=== PATIENT | female | born 1955 | race Caucasian/White ===

== ENCOUNTER 2021-02-26 14:09 | Outpatient (CLI) | payer OTHER, SELFPAY ==
--- NOTE | ~2021-02-26 | DEXA_ITS ---
Bone Density Report Name: Margarita Waller Age: 65 Sex: Female Ethnicity: White Date of : 1955 Indication: postmenopausal; parental hip fracture; height loss; hysterectomy; Referring Provider: Albert Henry Study: Bone densitometry was performed. Exam Date: February 26, 2021 Accession number: [id number] Bone Density: Region BMD T-score Z-score Classification AP Spine (L1, L2) 1.160 1.6 3.2 Normal Femoral Neck (Left) 0.893 0.4 1.8 Normal Total Hip (Left) 1.095 1.3 2.4 Normal Total Hip Bilateral Avg 1.076 1.1 2.3 Normal Femoral Neck (Right) 0.904 0.5 1.9 Normal Total Hip (Right) 1.056 0.9 2.1 Normal World Health Organization criteria for BMD impression classify patients as: Normal (T-score at or above -1.0), Osteopenia (T-score between -1.0 and -2.5), or Osteoporosis (T-score at or below -2.5). 10-year Fracture Risk: FRAX not reported because: All T-scores for Spine Total, Hip Total, Femoral Neck at or above -1.0 Previous Exams: Region Exam Age BMD T-score BMD Change BMD Change Date g/cm2 vs Baseline vs Previous AP Spine(L1, L2) 02/26/2021 65 1.160 1.6 -0.080(-6.4%)# 0.017(1.5%) 03/19/2017 61 1.143 1.5 -0.097(-7.8%)# -0.097(-7.8%)# 08/11/2006 51 1.240 2.4 Total Hip(Left) 02/26/2021 65 1.095 1.3 -0.153(-12.2%) -0.009(-0.8%) 03/19/2017 61 1.104 1.3 -0.144(-11.6%) -0.144(-11.6%) 08/11/2006 51 1.248 2.5 Total Hip(Right) 02/26/2021 65 1.056 0.9 -0.166(-13.6%) -0.022(-2.1%) 03/19/2017 61 1.078 1.1 -0.144(-11.8%) -0.144(-11.8%) 08/11/2006 51 1.222 2.3 *Denotes significance at 95% confidence level, LSC for AP Spine = 0.022 g/cm2, LSC for Total Hip = 0.027 g/cm2 Clinical Information Provided by Patient: Parent has had a hip fracture Has the following medical conditions: Hysterectomy Patient maximum height was 66 Menopause Age: 44 Drinks caffeinated beverages Onset of menses at age 16 Number of children 1 Impression: The patient has normal bone mass. The patient has risk factors, including: parental hip fracture. No significant bone loss was observed. Discussion: BONE DENSITY IS ABOVE THE MINIMUM DESIRABLE LEVEL AT ALL SKELETAL SITES TESTED. This patient?s bone mineral density is above the minimum desirable level (T-score -1.0 or better) at all sites measured. The patient should follow a healthful lifestyle (good nutrition with adequate calcium and vitamin D, and appropriate weight-be
--- NOTE | ~2021-02-26 | MM_ITS ---
EXAMINATION: MM screening finn BI w hamlet HISTORY: Screening TECHNIQUE: Craniocaudal and mediolateral oblique 3-D tomosynthesis images were obtained and synthetic 2-D images were generated. CAD analysis was submitted and interpreted. COMPARISON: 03/19/2017 BREAST PARENCHYMAL COMPOSITION: There are scattered areas of fibroglandular density. FINDINGS: There is no evidence of suspicious mass, calcification, or architectural distortion to sugg est malignancy in either breast. There has been no suspicious interval change. IMPRESSION: 1. No mammographic evidence of malignancy. 2. Recommend routine screening mammography in one year. BI-RADS Category 1: Negative Reviewed, dictated and finalized at location A.
== END 2021-02-26 14:10 | disposition home or self-care (01) ==
LOC: ANHIMG 14:18
PROVIDERS: PCP Family Medicine; Visit Provider Physician Assistant
DX: Z12.31 Encounter for screening mammogram for malignant neoplasm of breast (principal); Z78.0 Asymptomatic menopausal state
CPT/HCPCS: 77063; 77067; 77080

== ENCOUNTER 2022-05-27 12:04 | Day surgery (SDC) | payer OTHER, SELFPAY ==
[2022-03-20 09:29] VITALS: BMI 25.9
[2022-05-13 13:55] VITALS: BMI 25.9
--- NOTE | 2022-05-27 11:48 | WPDANESEPPF ---
Anes - Initial Pre Proc Eval Procedure: Operation Date: 05/27/22 14:00 Proposed Procedures p Screening Colonoscopy - Javon Cooper MD Date/Time: 05/27/22 11:48 Surgeon: Javon Cooper MD Pre Op Diagnosis: Neoplasm Screening Patient Data Age: 66 Gender: F Height: 1.68 m Weight: 73 kg Allergies Allergy/AdvReac Type Severity Reaction Status Date / Time No Known Allergies Allergy Verified 05/27/22 12:46 Home Medications Medication Instructions Recorded Confirmed Type diclofenac sodium 1 % topical gel 4 gm topical QID #100 grams 07/29/19 05/27/22 Rx venlafaxine 37.5 mg 37.5 mg PO DAILY #90 caps 12/13/21 05/27/22 Rx capsule,extended release 24 hr zolpidem 10 mg tablet 10 mg PO .qhs #90 tabs 03/18/22 05/27/22 Rx peg 3350-electrolytes 236 240 ml PO Q10M #4,000 mL 03/20/22 05/27/22 Rx gram-22.74 gram-6.74 gram-5.86 gram solution (Golytely) Patient hx anesthesia problems: none Family hx anesthesia problems: none Results Review: All pre-operative results and documents have been reviewed as part of the pre-operative evaluation. [facility] Past Medical History Medical History (Updated 05/27/22 @ 11:49 by Salomon Bosch MD) Depression Obstructive sleep apnea (adult) (pediatric) Surgical History Surgical History History of cataract surgery History of hysterectomy Family History Family History Mother Hypertension Osteoporosis Father Family history of lung cancer, Onset Age: 59 Social History Social History Smoking packs per day: 0.5 Smoking cigarettes per day: 10.0 Years smoked: 15 Smoking pack-years: 7.50 Smoking status: Former smoker Tobacco type: cigarettes Smoking end date: 08/31/06 Alcohol intake: current Substance use: never Substance use type: does not use Living arrangements: with family Spiritual care concerns: No Anes - Eval Final PreProcedure Day of Procedure 05/27/22 11:48 Patient weight: overweight Heart: regular rate and rhythm Lungs: clear to auscultation Airway: Mallampati scale class II Neurological: alert and oriented Last oral intake: >/= 8 hours ASA classification: II Emergent: no Anesthetic plan: proceed Anesthesia type and monitoring: general GIVS and standard monitoring Results Review: All pre-operative results and documents have been reviewed as part of the pre-operative evaluation. Informed Consent: The patient's anesthetic plan and its attendant risks and benefits were discussed with the patient/family/POA. Questions were solicited and answers provided to the satisfaction of the patient/family/POA.
[2022-05-27 12:40] VITALS: BP 117/99; PULSE 71; RESP 16; TEMP 36.8; O2SAT 100
[2022-05-27] MEDS: LACTATED RINGERS 1,000 ML 150 ML IV CONT (13:04)
--- NOTE | 2022-05-27 13:17 | PM.HPGS ---
History of Present Illness History of Present Illness Consent: Risks, benefits, and alternatives have been discussed and questions answered. Patient agrees to proceed with procedure. Chief complaint: Neoplasm Screening Narrative: Margarita Waller is a 66 year old female Presents for screening colonoscopy. Patient's current weight appetite and bowel movements are normal. She denies abdominal pain. She has had no bleeding. Family history is noncontributory. Patient does have a past medical history of diverticulitis. Many years ago. Review of Systems Review of Systems: Review of systems noncontributory. COUNTS INCLUDE 234 BEDS AT THE [facility] Past Medical History Medical History (Updated 05/27/22 @ 13:18 by Javon Cooper MD) Depression Obstructive sleep apnea (adult) (pediatric) Surgical History Surgical History History of cataract surgery History of hysterectomy Family History Family History Mother Hypertension Osteoporosis Father Family history of lung cancer, Onset Age: 59 Social History Social History Smoking packs per day: 0.5 Smoking cigarettes per day: 10.0 Years smoked: 15 Smoking pack-years: 7.50 Smoking status: Former smoker Tobacco type: cigarettes Smoking end date: 08/31/06 Alcohol intake: current Substance use: never Substance use type: does not use Living arrangements: with family Spiritual care concerns: No Meds Home Medications and Allergies Home Medications Medication Instructions Recorded Confirmed Type diclofenac sodium 1 % topical gel 4 gm topical QID #100 grams 07/29/19 05/27/22 Rx venlafaxine 37.5 mg 37.5 mg PO DAILY #90 caps 12/13/21 05/27/22 Rx capsule,extended release 24 hr zolpidem 10 mg tablet 10 mg PO .qhs #90 tabs 03/18/22 05/27/22 Rx peg 3350-electrolytes 236 240 ml PO Q10M #4,000 mL 03/20/22 05/27/22 Rx gram-22.74 gram-6.74 gram-5.86 gram solution (Golytely) Allergies Allergy/AdvReac Type Severity Reaction Status Date / Time No Known Allergies Allergy Verified 05/27/22 12:46 Vital Signs Vital Signs - 24 hr 05/27/22 12:40 Temperature 98.3 F Pulse Rate 71 Respiratory Rate 16 Blood Pressure 117/99 H Pulse Oximetry 100 Oxygen Delivery Room Air Exam Narrative: Physical exam reveals patient to be alert. Vital signs stable. HEENT exam is unremarkable. Patient is anicteric. Lungs are clear to auscultation and percussion. Heart is without murmur or extra sounds. Abdomen bowel sounds are present soft nontender with no organomegaly. Digital external rectal exam is normal. Assessment and Plan Assessment and plan (1) Encounter for screening colonoscopy: Code(s): Z12.11 - Encounter for screening for malignant neoplasm of colon Status: Acute Assessment and Plan: Patient presents today for screening colonoscopy. Appears to be at average risk for colon polyps. High-fiber diet advised because prior history of diverticular disease.
[2022-05-27 14:46] VITALS: BP 114/70; PULSE 78; RESP 16; O2SAT 100
[2022-05-27 14:56] VITALS: BP 104/74; PULSE 75; RESP 16; O2SAT 100
--- NOTE | 2022-05-27 14:58 | SUR.PHASEII ---
PT AWAKE AND ALERT. EATING AND DRINKING. DENIES PAIN.
--- NOTE | 2022-05-27 15:01 | WPDANESPN ---
Anes - Prog Note Post-Op Date/Time: 05/27/22 15:01 Cardiovascular status: normal Respiratory status: normal Airway patency: baseline Mental status: baseline Post-Op hydration status: normal Vital Signs: Last Vital Signs Temp 36.8 C 05/27/22 12:40 Pulse 75 05/27/22 14:56 Resp 16 05/27/22 14:56 BP 104/74 05/27/22 14:56 Pulse Ox 100 05/27/22 14:56 O2 Del Method Room Air 05/27/22 14:56 Pain Score (VAS): 0 I/O: Intake & Output 05/26/22 05/27/22 05/27/22 23:59 07:59 15:59 Intake Total 500 Balance 500 Patient Feedback: Patient satisfied with anesthetic care.
[2022-05-27 15:06] VITALS: BP 119/72; PULSE 74; RESP 16
== END 2022-05-27 15:20 | disposition home or self-care (01) ==
PROVIDERS: PCP Physician Assistant; Visit Provider Internal Medicine Gastroenterology
PROC: 0DJD8ZZ Inspection of Lower Intestinal Tract, Via Natural or Artificial Opening Endoscopic (ICD-10-PCS; CPT 45378; principal; 2022-05-27 14:00)
DX: Z12.11 Encounter for screening for malignant neoplasm of colon (principal)
CPT/HCPCS: 45378

== ENCOUNTER 2022-12-09 10:52 | Emergency (ER) | payer MEDICARE, SELFPAY ==
[2022-12-09 10:57] VITALS: BP 132/78; PULSE 68; RESP 18; TEMP 36.4; O2SAT 100
--- NOTE | 2022-12-09 11:34 | ED.GENADULT ---
HPI - General Adult General Chief complaint: Wound/Laceration Stated complaint: Left hand laceration Time Seen by Provider: 12/09/22 11:10 History of Present Illness HPI narrative: 67-year-old female reports for evaluation of a laceration to the dorsal aspect of her left hand after accidentally cutting her hand with scissors just prior to arrival. Bleeding controlled. Patient is unsure when her last tetanus shot was. Denies fever, bodies, chills, purulent drainage. Related Data Allergies Allergy/AdvReac Type Severity Reaction Status Date / Time No Known Allergies Allergy Verified 09/03/22 14:20 Review of Systems Review of Systems: CONSTITUTIONAL: Denies fever, chills EYES: Denies visual changes, redness, or discharge. ENT: Denies rhinorrhea, congestion, sore throat, or otalgia. CARDIOVASCULAR: Denies chest pain, palpitations, or edema. RESPIRATORY: Denies cough or dyspnea. GASTROINTESTINAL: Denies abdominal pain, nausea, vomiting, or diarrhea. GENITOURINARY: Denies dysuria or hematuria. SKIN: Denies rash or itching. MUSCULOSKELETAL: Denies back pain, joint pain, or myalgia. NEUROLOGIC: Denies headache, numbness, dizziness, or weakness. PSYCHIATRIC: Denies anxiety or depression. [facility] Past Medical History Medical History Depression Obstructive sleep apnea (adult) (pediatric) Surgical History Surgical History H/O colonoscopy History of cataract surgery History of hysterectomy Family History Family History Mother Hypertension Osteoporosis Father Family history of lung cancer, Onset Age: 59 Social History Social History Smoking packs per day: 0.5 Smoking cigarettes per day: 10.0 Years smoked: 15 Smoking pack-years: 7.50 Smoking status: Former smoker Tobacco type: cigarettes Smoking end date: 08/31/06 Alcohol intake: current Substance use: never Substance use type: does not use Lack of Transportation: No Lack of Food: Never True Current Housing: I Have Housing Concerned About Future Housing: No Difficulty Paying Gas/Electric Bills: No Difficulty Paying for Meds: No Currently Unemployed: No Education: High School Diploma/GED Difficulty w/ Childcare or Family Care: No Living arrangements: with family Spiritual care concerns: No Exam Narrative: GENERAL: Well-appearing, well-nourished, and in no acute distress. Patient resting comfortably in exam bed. She is pleasant and conversational. HEAD: Normocephalic, atraumatic. EYES: PERRLA and EOMI. ENT: Nares clear, no rhinorrhea or epistaxis. Mucous membranes moist. Oropharynx without tonsillar hypertrophy exudate or other lesions. NECK: Supple. No adenopathy or masses. CHEST: Clear to auscultation. No respiratory distress. No wheezes rales or rhonchi HEART: Regular rate and rhythm. No murmur heard. Normal peripheral pulses. EXTREMITIES: Normal range of motion. No edema. SKIN: 3.5 cm U shaped laceration to L dorsal hand overlying 1st metacarpal. Bleeding controlled. No purulent drainage. Full ROM of hand. Cap refill <2. Sensation intact. NEURO: No focal deficits. Alert and oriented x3. PSYCH: Normal mood and affect. Course Vital Signs Vital signs: Vital Signs Temperature 97.6 F 12/09/22 10:57 Pulse Rate 68 12/09/22 10:57 Respiratory Rate 18 12/09/22 10:57 Blood Pressure 132/78 12/09/22 10:57 Pulse Oximetry 100 12/09/22 10:57 Oxygen Delivery Room Air 12/09/22 10:57 Temperature 97.6 F 12/09/22 10:57 Pulse Rate 68 12/09/22 10:57 Respiratory Rate 18 12/09/22 10:57 Blood Pressure 132/78 12/09/22 10:57 Pulse Oximetry 100 12/09/22 10:57 Oxygen Delivery Room Air 12/09/22 10:57 Procedures Laceration Laceration 1:
[2022-12-09] MEDS: TETANUS,DIPHTHERIA,AC PERTUSSIS ADULT (0.5 ML) BOOSTRIX IM (11:53)
[2022-12-09] MEDS: LIDOCAINE HCL 1% LOCAL INJ 10 ML VIAL 5 ML INFILTRATE (11:54)
== END 2022-12-09 13:46 | disposition home or self-care (01) ==
PROVIDERS: Emergency Provider Physician Assistant; PCP Family Medicine
DX: S61.412A Laceration without foreign body of left hand, initial encounter (principal); Z23 Encounter for immunization; G47.33 Obstructive sleep apnea (adult) (pediatric); Z98.49 Cataract extraction status, unspecified eye; Z90.710 Acquired absence of both cervix and uterus; Z87.891 Personal history of nicotine dependence; W27.2XXA Contact with scissors, initial encounter
CPT/HCPCS: 12002; 90471; 90715; 99282

== ENCOUNTER 2023-07-08 13:49 | Outpatient (CLI) | payer MEDICARE, SELFPAY ==
--- NOTE | ~2023-07-08 | MM_ITS ---
EXAMINATION: MM screening finn BI w hamlet HISTORY: Screening TECHNIQUE: Craniocaudal and mediolateral oblique 3-D tomosynthesis images were obtained and synthetic 2-D images were generated. CAD analysis was submitted and interpreted. COMPARISON: Comparison to multiple prior studies sequentially, with oldest reviewed study dated 03/19. BREAST PARENCHYMAL COMPOSITION: The breasts are heterogeneously dense, which may obscure small masses . FINDINGS: There is no evidence of suspicious mass, calcification, or architectural distortion to sugg est malignancy in either breast. There has been no suspicious interval change. IMPRESSION: 1. No mammographic evidence of malignancy. 2. Recommend routine screening mammography in one year. BI-RADS Category 1: Negative Reviewed, dictated and finalized at location A. TING CARD EDITOR
== END 2023-07-08 13:50 | disposition home or self-care (01) ==
LOC: ANHIMG 13:54
PROVIDERS: PCP Emergency Medicine; Visit Provider Emergency Medicine
DX: Z12.31 Encounter for screening mammogram for malignant neoplasm of breast (principal); Z13.820 Encounter for screening for osteoporosis
CPT/HCPCS: 77063; 77067

== ENCOUNTER 2023-07-15 09:43 | Outpatient (CLI) | payer MEDICARE, SELFPAY ==
--- NOTE | ~2023-07-15 | NM_ITS ---
EXAMINATION: NM maicol stress w perfusion DATE: 07/15/2023 11:42 INDICATION: Precordial chest pain. TECHNIQUE: Rest images were obtained following intravenous administration of 11.3 mCi Tc99m tetrofosm in (Myoview). The patient was infused intravenously with Lexiscan (regadenoson). Then, 33.6 mCi Tc99m tetrofosmin (Myoview) was administered intravenously, and stress images were obtained. Data was paula nstructed into short axis and horizontal and vertical long axis SPECT images. Gated SPECT images were also obtained. COMPARISON: None. FINDINGS: There is no definite reversible or fixed perfusion abnormality to suggest ischemia or infar ction. There is no segmental wall motion abnormality. Left ventricular ejection fraction measures > 70%. IMPRESSION: 1. No definite ischemia or infarct. 2. Normal left ventricular ejection fraction measuring > 70%. Reviewed, dictated and finalized at location A. T BOAT CAPTAIN
--- NOTE | 2023-07-15 09:51 | EST_ITS ---
Patient Info Name: Margarita Waller Age: 67 years : 1955 Gender: Female Ht: 66 in Wt: 164 lbs BSA: 1.88 m2 HR: 65 bpm BP: 113 / 75 mmHg Exam Date: 07/15/2023 10:47 AM Exam Location: [facility] Patient Status: Outpatient Admit Date: 07/15/2023 Staff Ordering Physician: David George MD Attending Provider: David George MD Exercise Technologist: Shanita Casanova CT Exercise Physician: Keron Jones DO Exam Type: CA stress maicol w NM Study Info A regadenoson stress test was performed. Summary 1. 1. Negative lexiscan stress test for ischemic ST changes by ECG criteria. 2. 2. Stable hemodynamics throughout the test. 3. 3. Nuclear scan to follow and will be reported separately. Please correlate with it. 4. 4. Patient informed of the above results. Protocol: Lexiscan Stress ECG Details Stage: REST Duration (min): 1 min : 6 sec HR (bpm): 64 SBP (mmHg): 113 DBP (mmHg): 75 Stage: REST Duration (min): 9 min : 25 sec HR (bpm): 66 SBP (mmHg): 113 DBP (mmHg): 75 Stage: STAGE 1 Duration (min): 1 min : 0 sec HR (bpm): 85 SBP (mmHg): 120 DBP (mmHg): 73 Stage: RECOVERY Duration (min): 1 min : 0 sec HR (bpm): 92 SBP (mmHg): 120 DBP (mmHg): 73 Stage: RECOVERY Duration (min): 2 min : 0 sec HR (bpm): 90 SBP (mmHg): 120 DBP (mmHg): 73 Stage: RECOVERY Duration (min): 3 min : 0 sec HR (bpm): 87 SBP (mmHg): 130 DBP (mmHg): 76 Rest HR: 66 bpm Peak HR: 100 bpm Rest Sys BP: 113 mmHg Peak Sys BP: 130 mmHg Max Pred HR: 155 bpm % Max Pred HR: 65 % Target HR: 132 bpm Max RPP: 13,000 bpm*mmHg Termination Reason: Completed protocol Cardiac Symptoms: Shortness of breath Total Time: 1 min : 0 sec Rest Platt BP: 75 mmHg Peak Platt BP: 76 mmHg Total Dose: 0.4 mg Resting ECG Sinus rhythm. Stress ECG No ST changes. Arrhythmias None. Report Signatures
--- NOTE | 2023-07-17 16:33 | WPDHOLTEREM ---
Holter/Event Monitor Holter/Event Monitor Date of procedure: 07/15/23 Holter/Event Procedure: 48 Hr Holter Monitor Indications: Precordial pain Conclusion: 1. 48 hour holter monitor on 07/15/23. 2. Underlying rhythm is sinus rhythm. HR range 61-133 bpm; average HR 83 bpm. 3. There are 14 premature supraventricular complexes and 1 supraventricular couplet. No supraventricular tachycardia. 4. There is 1 premature ventricular complex. No ventricular tachycardia. 5. No sinoatrial or atrioventricular blocks. No significant pauses greater than 2 seconds. 6. Patient reports symptoms of chest flutter which demonstrate sinus rhythm, HR range 69-82 bpm.
== END 2023-07-15 09:44 | disposition home or self-care (01) ==
PROVIDERS: PCP Emergency Medicine; Visit Provider Emergency Medicine
DX: R07.2 Precordial pain (principal); R00.2 Palpitations
CPT/HCPCS: 78452; 93017; 93225; 93226; A9502; J2785

== ENCOUNTER 2023-07-27 13:43 | Emergency (ER) | payer MEDICARE, SELFPAY ==
--- NOTE | ~2023-07-27 | XR_ITS ---
EXAMINATION: XR chest 2V DATE: 07/27/2023 14:30 INDICATION: Chest pain. TECHNIQUE: Frontal and lateral views of the chest were obtained. COMPARISON: Chest 2 views 05/20/2010 FINDINGS: A calcified left lung nodule is consistent with old granulomatous disease. No pleural effus ion or pneumothorax. The heart size is normal. There is mild chronic anterior wedging of multiple mid thoracic vertebral bodies. IMPRESSION: 1. No acute cardiopulmonary disease. Reviewed, dictated and finalized at location A. JOGGER
--- NOTE | 2023-07-27 13:43 | ECG_ITS ---
Measurements Intervals [place] Rate: 98 P: 57 IN: 164 QRS: -30 QRSD: 78 T: 50 QT: 328 QTc: 419 Interpretive Statements SINUS RHYTHM BORDERLINE R WAVE PROGRESSION, ANTERIOR LEADS LOW QRS VOLTAGE IN PRECORDIAL LEADS CONSIDER INFERIOR INFARCT, AGE INDETERMINATE ABNORMAL ECG NO PREVIOUS ECG AVAILABLE FOR COMPARISON Electronically Signed On 07-27-2023 13:58:42 COMMODITY MANAGER by Keron Jones D.O.
[2023-07-27 13:57] VITALS: BP 141/83; PULSE 102; RESP 18; TEMP 36.9; O2SAT 98
[2023-07-27 14:05] LABS: Basophils Percent Auto 0.5 % (0.2-1.2); Eosinophils Percent Auto 0.5 % (0-4.4); Hematocrit 43.5 % (37.0-47.0); Hemoglobin 13.5 g/dL (12.0-15.0); Immature Granulocyte Absolute 0.01 K/mm3 (0.00-0.031); Immature Granulocyte Percent A 0.2 % (0-0.5); Lymphocytes Absolute Auto 1.77 K/mm3 (0.9-3.2); Lymphocytes Percent Auto 31.3 % (18.3-44.2); Mean Corpuscular Hemoglobin 28.4 pg (26-34); Mean Corpuscular Volume 91.6 fl (80-100); Mean Platelet Volume 9.5 fl (7.4-10.4); Monocytes Absolute Auto 0.7 K/mm3 (0.1-0.6); Monocytes Percent Auto 11.5 % (2.6-8.5); Neutrophils Absolute Auto 3.2 K/mm3 (1.3-6.7); Platelet Count Result 283 k/mm3 (150-375); Red Blood Count 4.75 M/mm3 (4.2-5.4); Red Cell Distribution Width 13.3 % (11.5-14.5); White Blood Count 5.7 K/mm3 (4.5-10.0)
[2023-07-27 14:14] LABS: Prothrombin Time 13.5 Seconds (11.1-14.7)
[2023-07-27 14:15] LABS: Partial Thromboplastin Time 27.9 SECONDS (22.3-36.8)
[2023-07-27 14:19] LABS: Alanine Aminotransferase 15 U/L (6-35); Albumin Level 4.7 g/dL (3.5-5.1); Alkaline Phosphatase 69 U/L (38-126); Anion Gap 9 mmol/L (8-16); Aspartate Amino Transferase 21 U/L (14-36); Bilirubin,Total 0.9 mg/dL (0.2-1.3); Blood Urea Nitrogen 10 mg/dL (7-17); Calcium 9.7 mg/dL (8.4-10.2); Carbon Dioxide 29 mmol/L (22-30); Chloride 100 mmol/L (98-107); Estimated CRCL calculation 56 ml/min; Estimated Glomerular Filt Rate > 60; Glucose 119 mg/dL (65-110); Lipase 75 U/L (23-300); Potassium 3.6 mmol/L (3.4-5.0); Sodium 138 mmol/L (137-145)
[2023-07-27 14:29] LABS: Troponin I < 0.012 ng/mL (0.000-0.034)
[2023-07-27 16:22] VITALS: BP 149/91; PULSE 94; RESP 18; O2SAT 97
--- NOTE | 2023-07-27 16:34 | ED.GENADULT ---
HPI - General Adult General Chief complaint: Chest Pain <Sabas Donnelly PA-C - Last Filed: 07/27/23 16:42> Stated complaint: CP <Sabas Donnelly PA-C - Last Filed: 07/27/23 16:42> Time Seen by Provider: 07/27/23 16:33 <aSbas Donnelly PA-C - Last Filed: 07/27/23 16:42> Source: patient <RADHA Flores Last Filed: 07/27/23 16:42> Mode of arrival: ambulatory <RADHA Flores Last Filed: 07/27/23 16:42> Limitations: no limitations <Sabas Donnelly PA-C - Last Filed: 07/27/23 16:42> History of Present Illness HPI narrative: This is a 68-year-old female who presents to the ED with chief complaint of chest pain beginning several hours prior to arrival. She states she has been having intermittent chest pains since July 01 and worse today. Seem to come and go at random. She reports that they will last for few hours but she can often get him to calm down by lying down or drinking hot tea. States that the chest pain seems to come on whenever the heart rate increases. Reports that her heart rate has been as high as 110 and she has been checking the heart rate diligently on her Apple watch along with running EKGs. Reports that her PCP told her to come to ER today for this increasing chest pain. Reports pain is 7/10 in the central chest. Radiates somewhat to the left. Does endorse palpitations. denies exertional component. Denies syncope or vomiting. Denies cough, shortness of breath, fevers, chills. Denies blood clot history. States she has had recent Holter monitor and stress test which have come back with negative results. <Sabas Donnelly PA-C - Last Filed: 07/27/23 16:42> Related Data Home medications: Home Medications Medication Instructions Recorded Confirmed aspirin 81 mg tablet,delayed 81 mg PO DAILY 02/19/23 07/27/23 release (Adult Low Dose Aspirin) <RADHA Flores Last Filed: 07/27/23 16:42> Allergies/adverse reactions: Allergies Allergy/AdvReac Type Severity Reaction Status Date / Time No Known Allergies Allergy Verified 07/27/23 16:23 <Sabas Donnelly PA-C - Last Filed: 07/27/23 16:42> Review of Systems Review of Systems: All systems as dictated in HPI <Sabas Donnelly PA-C - Last Filed: 07/27/23 16:42> PMFSH Past Medical History Medical History: Medical History Depression Obstructive sleep apnea (adult) (pediatric) <Sabas Donnelly PA-C - Last Filed: 07/27/23 16:42> Surgical History Surgical History: Surgical History H/O colonoscopy History of cataract surgery History of hysterectomy <Sabas Donnelly PA-C - Last Filed: 07/27/23 16:42> Family History Family History: Family History Mother Hypertension Osteoporosis Father Family history of lung cancer, Onset Age: 59 <Sabas Donnelly PA-C - Last Filed: 07/27/23 16:42> Social History Social History: Social History Smoking packs per day: 0.5 Smoking cigarettes per day: 10.0 Years smoked: 15 Smoking pack-years: 7.50 Smoking status: Former smoker Tobacco type: cigarettes Smoking end date: 08/31/06 Alcohol intake: current Substance use: never Substance use type: does not use Lack of Transportation: No Lack of Food: Never True Current Housing: I Have Housing Concerned About Future Housing: No Difficulty Paying Gas/Electric Bills: No Difficulty Paying for Meds: No Currently Unemployed: No Education: High School Diploma/GED Difficulty w/ Childcare or Family Care: No Living arrangements: with family Spiritual care concerns: No <RADHA Flores Last Filed: 07/27/23 16:42> Exam Narrative: GENERAL: Well-appearing, well-nourished, and in no acute di
[2023-07-27] MEDS: ASPIRIN 81 MG CHEWABLE TABLET 324 MG PO (16:37)
[2023-07-27 17:11] LABS: Troponin I < 0.012 ng/mL (0.000-0.034)
[2023-07-27 17:21] VITALS: BP 147/95; PULSE 89; RESP 16; O2SAT 100
[2023-07-27 17:21] LABS: D Dimer 0.59 ug/mL (<0.48)
[2023-07-27 17:35] VITALS: O2SAT 97
[2023-07-27 18:52] VITALS: BP 133/77; PULSE 82; RESP 18; O2SAT 97
== END 2023-07-27 19:07 | disposition home or self-care (01) ==
PROVIDERS: Emergency Medicine; Physician Assistant; Emergency Provider Student in an Organized Health Care Education/Training Program; PCP Physician Assistant
DX: R07.9 Chest pain, unspecified (principal); R00.2 Palpitations; G47.33 Obstructive sleep apnea (adult) (pediatric); Z98.49 Cataract extraction status, unspecified eye; Z87.891 Personal history of nicotine dependence; Z90.710 Acquired absence of both cervix and uterus; Z79.82 Long term (current) use of aspirin; R94.31 Abnormal electrocardiogram [ECG] [EKG]
CPT/HCPCS: 36415; 71046; 80053; 83690; 84484; 85025; 85380; 85610; 85730; 93005; 99284; A9270

== ENCOUNTER 2023-09-01 16:16 | Outpatient (CLI) | payer MEDICARE, SELFPAY ==
--- NOTE | ~2023-09-01 | XR_ITS ---
XR knee LT min 4V DATE: 09/01/2023 16:43 INDICATION: Left knee osteoarthritis TECHNIQUE: [place] and standing AP, PA and lateral views COMPARISON: 09/03/2022 left knee FINDINGS: There is virtual obliteration of the left lateral compartment knee joint space with periart icular spurring consistent with severe lateral compartment osteoarthritis. There is moderate loss of medial compartment joint space with periarticular spurring at this compartm ent as well as the patellofemoral compartment. Mild suprapatellar knee joint effusion. Mild superior pole patellar enthesopathy at the quadriceps tendon insertion. No fracture or dislocation, periosteal reaction or bone destruction is detected. No chondrocalcinosis. 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 ERY STOCK CLERK IMPRESSION: Tricompartment osteoarthritis, most severe at the lateral compartme nt
== END 2023-09-01 16:17 | disposition home or self-care (01) ==
PROVIDERS: PCP Emergency Medicine; Visit Provider Physician Assistant Surgical
DX: M17.12 Unilateral primary osteoarthritis, left knee (principal)
CPT/HCPCS: 73564

== ENCOUNTER 2023-10-19 15:25 | Outpatient (CLI) | payer MEDICARE, SELFPAY ==
--- NOTE | ~2023-10-19 | DEXA_ITS ---
Bone Density Report Name: REGAN ALMAZAN Age: 68 Sex: Female Ethnicity: White Date of : 1955 Indication: postmenopausal; screening for osteoporosis; parental hip fracture; height loss; asthma or emphysema; hysterectomy; Referring Provider: SHANEL JONES Study: Bone densitometry was performed. Exam Date: October 19, 2023 Accession number: [id number] Bone Density: Region BMD T-score Z-score Classification AP Spine(L1-L4) 1.265 2.0 3.8 Normal Femoral Neck (Left) 0.901 0.5 2.0 Normal Total Hip (Left) 1.068 1.0 2.3 Normal Femoral Neck (Right) 0.859 0.1 1.7 Normal Total Hip (Right) 1.062 1.0 2.3 Normal Total Hip Mean 1.065 1.0 2.3 Normal World Health Organization criteria for BMD impression classify patients as: Normal (T-score at or above -1.0), Osteopenia (T-score between -1.0 and -2.5), or Osteoporosis (T-score at or below -2.5). 10-year Fracture Risk: FRAX not reported because: All T-scores for Spine Total, Hip Total, Femoral Neck at or above -1.0 Previous Exams: Region Exam Age BMD T-score BMD Change BMD Change Date g/cm2 vs Baseline vs Previous Total Hip(Left) 10/19/2023 68 1.068 1.0 -0.036 (-3.3%) -0.027 (-2.5%) 02/26/2021 65 1.095 1.3 -0.009 (-0.8%) -0.009 (-0.8%) 03/19/2017 61 1.104 1.3 Total Hip(Right) 10/19/2023 68 1.062 1.0 -0.016 (-1.5%) 0.006 (0.6%) 02/26/2021 65 1.056 0.9 -0.022 (-2.1%) -0.022 (-2.1%) 03/19/2017 61 1.078 1.1 *Denotes significance at 95% confidence level, LSC for Total Hip = 0.027 g/cm2 Clinical Information Provided by Patient: Parent has had a hip fracture Has used the following medications: Calcium Has the following medical conditions: Asthma or Emphysema, Hysterectomy Patient maximum height was 66 Menopause Age: 44 Drinks caffeinated beverages Onset of menses at age 16 Number of children 1 Impression: The patient has normal bone mass. The patient has risk factors, including: parental hip fracture. The BMD for the Total Hip(Left) decreased, changing by -2.5% since the last DXA exam. Discussion: BONE DENSITY IS ABOVE THE MINIMUM DESIRABLE LEVEL AT ALL SKELETAL SITES TESTED. This patient?s bone mineral density is above the minimum desirable level (T-score -1.0 or better) at all sites measured. The patient should follow a healthful lifestyle (good nutrition with adequate calcium and vitamin D, and appropriate weight-bearing exercise). Follow-Up: Consider repeating this nikia
== END 2023-10-19 15:26 | disposition home or self-care (01) ==
LOC: ANHIMG 15:28
PROVIDERS: PCP Emergency Medicine; Visit Provider Emergency Medicine
DX: Z13.820 Encounter for screening for osteoporosis (principal); Z78.0 Asymptomatic menopausal state
CPT/HCPCS: 77080

== ENCOUNTER 2024-05-31 14:25 | Outpatient (CLI) | payer MEDICARE, SELFPAY ==
--- NOTE | ~2024-05-31 | XR_ITS ---
XR knee LT min 4V Ordering provider: Christiano Bentley MD History: . M17.12 - Unilateral primary osteoarthritis, left knee . Comparison: September 01, 2023 FINDINGS: BONES: No acute fracture or dislocation. JOINT SPACES: Moderate Narrowing of the lateral compartment. SOFT TISSUES: Normal. IMPRESSION: No acute osseous abnormality left knee. moderate osteoarthritic changes. Reviewed, dictated and finalized at location A.
== END 2024-05-31 14:26 | disposition home or self-care (01) ==
PROVIDERS: PCP Family Medicine; Visit Provider Orthopaedic Surgery
DX: M17.12 Unilateral primary osteoarthritis, left knee (principal)
CPT/HCPCS: 73564

== ENCOUNTER 2024-08-25 15:09 | Outpatient (CLI) | payer MEDICARE, SELFPAY ==
--- NOTE | ~2024-08-25 | CT_ITS ---
EXAMINATION: CT LE LT wo con DATE: 08/25/2024 15:50 INDICATION: Left knee osteoarthritis for preoperative planning TECHNIQUE: High resolution computed tomography (CT) of the left lower extremity from the hip through the ankle was performed without intravenous contrast. Additional sagittal and coronal reconstructions were performed. Automated exposure control and iterative reconstruction technique were employed. The dose-length product was 1835.32 mGy-cm. COMPARISON: Left knee radiographs dated 05/31/24 FINDINGS: Bone alignment is normal. No fractures or osteonecrosis. Lateral compartment predominant tricompartme ntal osteoarthritis at the left knee with moderate joint space narrowing evident on the recent prior radiograph is obtained in the standing position. Additional mild polyarticular osteoarthritis at the left hip to chronic joint as well as at the left ankle and multiple joints in the left foot. Moderate -sized left knee joint effusion as well as a 4.5 x 3.8 x 2.3 cm Abad's cyst at the left popliteal fo ssa. Moderate osteitis pubis. Small fat-containing left inguinal hernia. No pathologically enlarged l eft pelvic or inguinal lymphadenopathy. IMPRESSION: 1. Moderate severity lateral compartment predominant tricompartmental osteoarthritis at the left knee with moderate-sized knee joint effusion and moderate-sized Abad's cyst. Reviewed, dictated and finalized at location B. [employer] IMPRESSION: 1. Moderate severity lateral compartment predominant tricompartmental osteoarth ritis at the left knee with moderate-sized knee joint effusion and moderate-siz ed Abad's cyst.
[2024-08-25 15:36] LABS: Hematocrit 38.1 % (37.0-47.0); Hemoglobin 12.5 g/dL (12.0-15.0)
[2024-08-25 15:52] LABS: Albumin Level 4.3 g/dL (3.5-5.1); Estimated Glomerular Filt Rate > 60; Glucose 96 mg/dL (65-110)
[2024-08-25 15:59] LABS: Urine Cotinine NEGATIVE
[2024-08-25 16:03] LABS: Hemoglobin A1C 5.6 % (<5.7)
== END 2024-08-25 15:10 | disposition home or self-care (01) ==
LOC: ANHIMG 15:10
PROVIDERS: PCP Family Medicine; Visit Provider Orthopaedic Surgery
DX: Z01.818 Encounter for other preprocedural examination (principal); M17.12 Unilateral primary osteoarthritis, left knee; M25.462 Effusion, left knee; M71.22 Synovial cyst of popliteal space [Baker], left knee; R73.01 Impaired fasting glucose; Z79.899 Other long term (current) drug therapy
CPT/HCPCS: 73700; 80307; 82040; 82565; 82947; 83036; 85014; 85018

== ENCOUNTER 2024-11-09 11:32 | Outpatient (CLI) | payer MEDICARE, SELFPAY ==
--- NOTE | 2024-11-09 12:51 | ECG_ITS ---
Test Date: 2024-11-09 13:15:02 Measurements Intervals [place] Rate: 63 P: 49 LA: 162 QRS: -6 QRSD: 84 T: 28 QT: 413 QTc: 425 Interpretive Statements SINUS RHYTHM LOW QRS VOLTAGE IN PRECORDIAL LEADS [QRS DEFLECTION < 1.0 mV IN CHEST LEADS] No previous ECG available for comparison Electronically Signed On 11-09-2024 13:53:25 CDT by Sonny Walsh M.D.
--- OUTSIDE RECORDS SUMMARY | 2024-11-09 13:27 | XMS_ITS | Encounter Summary ---
Author Organization [facility] Address [address] [place] [address] Care Team Providers Care Delivery Driver Name Role Phone Conrad Das MD Primary Care Provider [phone] Cristina Calero NP Unavailable [phone] Epifanio Oleary MD Unavailable Edyta Linton MD Unavailable Christiano Bentley MD Unavailable [phone] Mary Anaya MD Unavailable [phone] Encounter Details Date Type Department Care Team (Late st Contact Info) Description 11/08/2024 1:30 PM CDT Office Visit [facility] Sleep Medicine at [address] [place] [address] Edyta Linton MD [address] [place] [address] [address] [place] [address] Obstructive sleep apnea (Primary Dx); Hypersomnia; Overweight; Insomnia, unspecified type Social History Tobacco Use Types Packs/Day Years Used Date Smoking Tobacco: Former Cigarettes 0.5 20 0 08/31/1988 - 2008 Passive Smoke Exposure: Past Smokeless Tobacco: Never Tobacco Cessation:Counseling Given: Not Answered AUDIT-C Answer Date Recorded Q1: How often do you have a drink containing alcohol? Never 06/14/2024 Q2: How many drinks containi ng alcohol do you have on a typical day when you are drinking? Patient does not drink Q3: How often do you have si x or more drinks on one occasion? Never 06/14/2024 PHQ-2 Answer Date Recorded PHQ-2 Total Score (If total score is 3 or more points, staff should administer the PHQ-9) 0 10/24/2024 Personal Safety Answer Date Recorded Have you ever been in or are you currently in a harmful physical or emotional relationship or is someone making you feel afraid or unsafe? Denies 06/14/2024 Comments No Sex and Gender Information Value Date Recorded Sex Assigned at Not on file Legal Sex Female 7:16 AM [employer]OOK[employer] Gender Identity Not on file Sexual Orientation Not on file documented as of this encounter Last Filed Vital Signs Vital Sign Reading Time Taken Comments Blood Pressure 109/70 11/08/2024 1:19 PM CDT Pulse 61 11/08/2024 1:19 PM CDT Temperature - - Respiratory Rate - - Oxygen Saturation 98% 11/08/2024 1:19 PM CDT Inhaled Oxygen Concentration - - Weight 75.9 kg (167 lb 6.4 oz) 11/08/2024 1:19 P M CDT Height 167.6 cm (5' 5.98 ) 11/08/2024 1:19 PM CD T Body Mass Index 27.03 11/08/2024 1:19 PM CDT documented in this encounter Progress Notes * Edyta Linton MD - 11/08/2024 1:30 PM CDT Images from the original note were not included. SUBJECTIVE Chief Complaints: Snoring, unrefreshing sleep, excessive daytime sleepiness HPI: Margarita Waller is a 69 y.o. female seen in the sleep medicine clinic for follow-up on obstructive sleep apnea and insomnia. Obstructive sleep apnea: Patient is currently on auto CPAP at 916 cm of water. She has been using it every night and keeps it on throughout the night. No issues with the mask or the machine. Patient feels well rested during the day. History: Patient gives history of many years of snoring, witnessed apneas waking up gasping or choking for air. She sometimes morning headaches. Patient sleepy and tired during the day. Denies any falling asleep while talking or eating or driving. Denies any motor vehicle accidents or near misses. Patient was diagnosed obstructive sleep apnea more than 22 years ago and has been on CPAP for the past 22 years. Patient currently uses a CPAP machine that is less than 5 years old. No issues with the mask the machine. She uses a fullface mask. Patient still does not feel refreshed on most days. Patient is very active and she runs a small horse stable. No family history of obstructive sleep apnea. Mask: F 30 fullface mask DME: [facility] Difficulty falling asleep and staying asleep: Patient is on Lunesta 3 mg nightly. She takes it at bedtime and goes to bed at 11:00 p.m., falls asleep in 15 minutes and wakes up at 7:30 a.m.. Patient wakes up twice to use the restroom and is ableto go to sleep right away. Denies any sleepwalking sleep talking or any confusion. Denies any sleepeating. Denies any grogginess in the morning. Patient states that she is going for knee replacement surgery in 2 weeks and will be seeing pain management for her back pain after that. History: Patient gives history of many years of difficulty falling asleep and staying asleep. Patient was started on Ambien and was taking Ambien up until less than a year ago. Patient was switched from Ambien to Lunesta because she was eating night without any recollection. Patient currently takes no Denies any excessive grogginess in the morning. Denies any sleepwalking asleep talking or any otherparasomnias. She takes 2 mg at bedtime and is able to fall asleep within 10 minutes. Patient naps for 2-3 hours every day Patient is very active and runs a small hoarse stable. Medications tried: Ambien-discontinued due to sleep eating. Current medication: Lunesta 3 mg nightly. Uncomfortable feeling in her legs: History: Patient gives history of an urge to move her legs specially in the middle of the night. Does not have to walk. Patient states that some movement at her ankles help her. Sleep schedule: At initial visit: On all days, she goes to bed at 10:30 p.m., falls asleep in 10 minutes and wakes up at 7:30 a.m.. Patient wakes up once to use the restroom and is able to go back to sleep within several minutes. Patient naps for 2-3 hours every day. Denies any hypnogogic or hypnopompic hallunications. Denies any sleep paralysis. Denies any cataplexy. Denies any dreaming during daytime naps. Denies feeling refreshed after daytime naps. Denies any sleepwalking. Denies any sleeptalking. Denies any nightmares. Denies any motor activities, kicking, acting out dreams, falls, or screaming during sleep. 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 Sleep apnea 1999 Past Surgical History: Procedure Laterality Date CATARACT EXTRACTION 2020 SECTION 1977 COLONOSCOPY 2023 HYSTERECTOMY LASIK 1999 RETINAL DETACHMENT SURGERY Right Current Outpatient Medications: aspirin, 81 mg, oral, Nightly clonazePAM, 0.25 mg, oral, BID PRN diclofenac sodium, 2 g, topical, QID PRN dicyclomine, 10 mg, oral, QID (AC & HS) eszopiclone, 3 mg, oral, Nightly lisinopriL, 10 mg, oral, Nightly metoprolol XL, 25 mg, oral, Daily valACYclovir, TAKE 2 TABLETS(2000 MG) BY MOUTH TWICE DAILY FOR 1 DAY venlafaxine XR, 37.5 mg, oral, Daily with lunch Allergies Allergen Reactions Fish Oil [[place]-3 Fatty Acids] Palpitations Social History Tobacco Use Smoking status: Former Current packs/day: 0.00 Average packs/day: 0.5 packs/day for 20.0 years (10.0 ttl pk-yrs) Types: Cigarettes Start date: 08/31/1988 Quit date: 2009 Years since quittin.2 Passive exposure: Past Smokeless tobacco: Never Substance and Sexual Activity Drug use: Never Sexual activity: Defer Partners: Male control/protection: Abstinence, Post-menopausal Alcohol Use: Not At Risk (06/14/2024) AUDIT-C Frequency of Alcohol Consumption: Never Average Number of Drinks: Patient does not drink Frequency of Binge Drinking: Never 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 Family History Problem Relation Age of Onset Other (flu) Mother Osteoporosis Mother Arthritis Mother Hypertension Mother Lung cancer Father Cancer Father Arrhythmia Sister Cardiomyopathy Sister Peripheral vascular disease Sister Clotting disorder Sister Other (glioblastoma) Sister Anesthesia problems Neg Hx Physical Exam: Vitals: 11/08/24 1319 BP: 109/70 Pulse: 61 SpO2: 98% Weight: 75.9 kg (167 lb 6.4 oz) Height: 167.6 cm (5' 5.98 ) BMI: Body mass index is 27.03 kg/m??. Wt Readings from Last 6 Encounters: 11/08/24 75.9 kg (167 lb 6.4 oz) 10/24/24 74.4 kg (164 lb) 09/28/24 74.4 kg (164 lb) 08/02/24 74.4 kg (164 lb) 06/27/24 71.4 kg (157 lb 6.4 oz) 06/10/24 71.8 kg (158 lb 4.6 oz) BMI Readings from Last 6 Encounters: 11/08/24 27.03 kg/m?? 10/24/24 26.47 kg/m?? 09/28/24 26.47 kg/m?? 08/02/24 27.29 kg/m?? 06/27/24 26.61 kg/m?? 06/10/24 27.17 kg/m?? Physical Exam General appearance: Alert, oriented, in no distress. HEENT: Atraumatic, normocephalic. Pupils are equal and reactive to light. Extraocular movement intact. Mallampati-III Neuro: No focal deficits Psychiatric: Normal mood and affect Polysomnogram results: PSG from 2016 at [facility] from 2016: AHI 12.9 CPAP titration from 2015 at [facility]: CPAP-6 cm of water Data download: Please see scanned data Ejection fraction: Echo from 08/2023: 79% Assessment and Plan: Mild obstructive sleep apnea: Patient has a diagnosed obstructive sleep apnea for the past 22 years per patient. PSG from 2016 showed mild obstructive sleep apnea. Given the comorbid hypertension, patient will benefit from continued treatment of mild obstructive sleep apnea. Patient currently on auto CPAP at 9-16 cm of water. Current device is less than 5 years old per patient. Download reviewed, excellent compliance, days with device usage is 100%, days with usage >= 4 hours is 100%, average usage (days used) is 7 hours 58 minutes, well controlled with residual AHI of 5.8 per hour. Will switch auto CPAP 9-15 cm of water. The physiology of sleep disordered breathing and its increased association with hypertension, diabetes mellitus type 2, arrhythmias, strokes, heart attacks, heart failure, hypersomnia, obesity, cognitive dysfunction, and mood disorders were discussed. Hypnotics, sedatives, and related medications have the potential of worsening the apnea and should be avoided. Patients with sleep apnea may have significant daytime hypersomnolence. If that is the case, driving or handling heavy machinery should be avoided until the apnea and excessive sleepiness have resolved. Weight loss for ideal body weight range is recommended. Hypersomnia: Likely secondary to sleep fragmentation associated with uncontrolled sleep disordered breathing. Improved with CPAP use. No driving if sleepy. Overweight: The effects of obesity, obstructive sleep apnea syndrome and other morbidities were discussed. Recommended diet and exercise for ideal body weight. Patient verbalized understanding. Sleep onset and sleep maintenance insomnia: Sleep hygiene discussed in detail. Handout given to the patient during prior. Continue with consistent bedtime and wake-up time during weekdays and weekends. Do not nap for 2-3 hours during the day. Continue with regular activity during the day. Add relaxation techniques prior to bedtime. Continue treatment for sleep disordered breathing. Will send referral for CBT I if needed in the future. Patient currently is on Lunesta 3 mg nightly. Recommended patient to change it to p.r.n. as tolerated. Side effects discussed with the patient. Patient no longer on Ambien due to history of sleepeating. Sleep maintenance an issue due to back pain. Patient has not started therapy yet. Will reassess after therapy for her back pain. If she has persistent sleep maintenance insomnia, then will consider switching to different hypnotic. Return in about 6 months (around 05/11/2025). Voice recognition software [employer] was used dictate and transcribe this document. Home Theater Specialist variances may occur. Despite proofreading, typographical errors may occur. Edyta Linton MD [facility] Sleep Medicine CC: Conrad Das MD documented in this encounter Plan of Treatment Not on file documented as of this encounter Visit Diagnoses Diagnosis Obstructive sleep apnea- Primary Obstructive sleep apnea (adult) (pediatric) Hypersomnia Hypersomnia, unspecified Overweight Insomnia, unspecified type documented in this encounter Care Teams Delivery Driver Relationship Specialty Start Date End Date Conrad Das MD [address] [place] [address] PCP - General Family Medicine 02/25/24 Cristina Calero NP [address] [place] [address] Nurse Practitioner Gastroenterology 02/25/24 Epifanio Oleary MD [address] [facility] [place] [address] [place] [address] Consulting Physician Cardiology 02/25/24 Edyta Linton MD [address] [place] [address] Consulting Physician Sleep Medicine 02/25/24 Christiano Bentley MD [address] [facility] [address] [place] [address] Referring Physician Orthopedic Surgery 02/25/24 Mary Anaya MD [address] [facility] [id number] [place] [address] Consulting Physician General Surgery 10/24/24 documented as of this encounter
--- OUTSIDE RECORDS SUMMARY | 2024-11-09 13:27 | XMS_ITS | Clinical Summary ---
Author Organization [facility] [address] [place] [address] Care Team Providers Care Demurrage Man Name Role Phone Conrad Das MD Primary Care Provider Cristina Calero NP Unavailable [phone] Epifanio Oleary MD Unavailable Edyta Linton MD Unavailable Christiano Bentley MD Unavailable [phone] Mary Anaya MD Unavailable [phone] Allergies Active Allergy Reactions Criticality Noted Date Comments [place]-3 Fatty Acids Palpitations Low 09/28/2024 Medications diclofenac sodium (VOLTAREN) 1 % gelIndications :Osteoarthriti s,Pain Apply 2 g topically 4 (four) times a day as needed (pain) 07/26/20 19 Active lisinopriL (PRINIVIL,ZEST RIL) 10 mg tabletIndicati ons:hypertensi on Take 1 tablet (10 mg total) by mouth nightly Active venlafaxine XR (EFFEXOR-XR) 37.5 mg 24 hr capsuleIndicat ions:Generaliz ed Anxiety Disorder Take 1 capsule (37.5 mg total) by mouth with lunch Active clonazePAM (KlonoPIN) 0.5 mg tablet Take 0.5 tablets (0.25 mg total) by mouth 2 (two) times a day as needed for anxiety 30 tablet 04/28/20 24 Active eszopiclone (LUNESTA) 3 mg tablet Take 1 tablet (3 mg total) by mouth nightly at bedtime 30 tablet 2 05/11/20 24 Active aspirin 81 mg enteric coated tablet Take 1 tablet (81 mg total) by mouth nightly Active metoprolol XL (TOPROL-XL) 25 mg extended release tablet Take 1 tablet (25 mg total) by mouth daily 90 tablet 6 09/28/19 25 026 Active valACYclovir (VALTREX) 1 gram tablet TAKE 2 TABLETS(2000 MG) BY MOUTH TWICE DAILY FOR 1 DAY 4 tablet 5 10/13/19 25 Active dicyclomine (BENTYL) 10 mg capsuleIndicat ions:Abdominal Pain with Cramps Take 1 capsule (10 mg total) by mouth 4 (four) times a day before meals and nightly PRN 120 capsule 11 10/24/19 25 026 Active valACYclovir (VALTREX) 1 gram tablet Take 2 tabs (2000 mg) 2 times a days for 1 day. 4 tablet 5 08/02/20 24 025 Discontinued Active Problems Problem Noted Date Diagnosed Date Encounter for Medicare annual wellness exam 10/2023 Assessment & Plan (08/02/2024 1:45 PM LAY OUT WORKER): A(n) yearly Medicare Annual Wellness Visit has been performed today. Margarita Waller is not up to date on screening tests. She is in need of Breast cancer screening and Hepatitis B screening. She is up to date on needed preventative vaccinations. We discussed healthy lifestyle habits, educational material has been given. Medications reviewed, changes documented as per the medical record and discussed with patient along with risks vs benefits. Specific topics reviewed: drugs, ETOH, and tobacco, importance of regular dental care, importance of regular exercise, importance of varied diet, limit TV, media violence, minimize junk food, and seat belts. Return in 6 months SBO (small bowel obstruction) 04/22/2024 Assessment & Plan (04/28/2024 4:21 PM CDT): Much improved, patient to continue to monitor symptoms. Essential hypertension 04/22/2024 Encounter for medical examination to establish c are 02/29/2024 Assessment & Plan (02/29/2024 10:19 AM CDT): A(n) initial visit to establish care has been performed today. Margarita Waller is not up to date on screening tests. She is in need of hepatitis B and Cholesterol screening. She is up to date on needed preventative vaccinations. We discussed healthy lifestyle habits, educational material has been given. Medications reviewed, changes documented as per the medical record and discussed with patient along with risks vs benefits. Return in 5 months Recurrent major depression 02/25/2024 Liver cyst 02/11/2024 Assessment & Plan (02/11/2024 1:00 PM CDT): Patient with 7.7 x 7.5 liver cyst seen on ecvho from 09/09/23. She is overall asymptomatic, occasionally experiences early satiety. I will have patient get updated imaging, will start with US RUQ to evaluate and confirm these are hepatic cysts. Explained to her that she may need MRI abd but will await US results first. Discussed with patient that liver cysts are benign and typically do not need further follow-up unless symptomatic. Also ordered liver labs as there are none available. Included HCV PCR. She will return on PRN basis. ART (obstructive sleep apnea) 11/09/2023 Anxiety Assessment & Plan (04/28/2024 4:22 PM CDT): Patient takes Alprazolam very sparingly but in need of refill d/t increased anxiety with medical conditions. Discussed that I am not a huge fan of the Alprazolam and explained why, patient agreeable when recommended to start Clonazepam prn instead. Encounters Date Type Department Care Team Description 11/08/2024 1:30 PM CDT Office Visit [facility] Sleep Medicine at [address] [place] [address] Edyta Linton MD Obstructive sleep apnea (Primary Dx); Hypersomnia; Overweight; Insomnia, unspecified type 11/04/2024 5:34 PM LAY OUT WORKER - 11/04/2024 11:59 PM LAY OUT WORKER Hospital Encounter [facility] [address] [place] [address] Epigastric abdominal tenderness without rebound tenderness Discharge Disposition: Discharge to home or self care 10/24/2024 1:00 PM LAY OUT WORKER Office Visit [facility] Primary [facility] at [address] [phone] Conrad Das MD Epigastric abdominal tenderness without rebound tenderness (Primary Dx) 10/19/2024 Nurse Triage [facility] at [address] [phone] Conrad Das MD 09/28/2024 10:45 AM LAY OUT WORKER Office Visit [facility] Cardiology [address] [facility] [address] [place] [phone] Epifanio Oleary MD Essential hypertension (Primary Dx); Palpitations; ART on CPAP 09/13/2024 2:05 PM LAY OUT WORKER - 09/13/2024 11:59 PM LAY OUT WORKER Hospital Encounter [facility] Office [facility] [address] [place] [address] Abnormality of left breast on screening mammogram Discharge Disposition: Discharge to home or self care 09/13/2024 2:05 PM LAY OUT WORKER - 09/13/2024 11:59 PM LAY OUT WORKER Hospital Encounter [facility] Medical Office [facility] [address] [place] [address] Abnormality of left breast on screening mammogram Discharge Disposition: Discharge to home or self care 09/07/2024 Orders Only [facility] at [address] [phone] Conrad Das MD Abnormality of left breast on screening mammogram (Primary Dx) 08/30/2024 11:15 AM LAY OUT WORKER - 08/30/2024 11:59 PM LAY OUT WORKER Hospital Encounter [facility] Medical Office [facility] [address] [address] Screening mammogram, encounter for Discharge Disposition: Discharge to home or self care from Last 3 Months Immunizations Immunization Administration Dates Next Due Influenza, Quadrivalent, Rhonda l Culture-based MDCK, Preservative Free, Antibiotic Free, Intramuscular 05/21/2021,06/12/2020 Influenza, Quadrivalent, Hig h Dose, Preservative Free, Intrr 05/18/2023,06/17/2022 Influenza, Quadrivalent, Spl it, Preservative Free, Intramuscular 06/16/2019,05/18/2019,06/08/2018 Influenza, Trivalent, High D ose, Split, Preservative Free, Intramuscular 05/19/2024 Influenza, Trivalent, IM (MDV) 08/02/2012 Influenza, Unspecified 08/31/2023,2022,06/17/2022,06/17 Pfizer SARS-CoV-2 Monovalent Vaccination (12+ Yrs) PURPLE 06/29/2021,11/20/2020,10/30/2020 Pneumococcal Conjugate Pcv20 02/25/2024 Td, Unspecified 08/31/2006 Tdap 12/09/2022,11/07/2013 ZOSTER Recombinant 08/01/2019,05/18/2019 Surgical History Surgery Date Site/Laterality Comments HYSTERECTOMY CATARACT EXTRACTION 2020 SECTION 1978 LASIK 2000 RETINAL DETACHMENT SURGERY Right COLONOSCOPY 08/31/2023 - 08/30/2024 Medical History Medical History Date Comments Hypertension Anxiety 2002 Osteoporosis 2013 Cataract 2019 Sleep apnea 2000 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 Family History Medical History Relation Name Comments Cancer Father Jose Martin David Black Lung cancer Father Jose Martin Waller Arthritis Mother Marie Black Cathy Hypertension Mother Marie Black Cathy Osteoporosis Mother Marie Black Cathy flu Mother Marie Black Cathy Arrhythmia Sister 1 Mary Magnolia Cardiomyopathy Sister 1 Mary Magnolia Clotting disorder Sister 1 Mary Magnolia Peripheral vascular disease Sister 1 Mary Magnolia glioblastoma Sister 2 Mary Waller Anesthesia problems Neg Hx Relation Name Status Comments Father Jose Martin David Black Mother Marie Black Cathy Sister 1 Mary Magnolia Alive Sister 2 Mary Waller Social History Tobacco Use Types Packs/Day Years [...] on file Legal Sex Female 7:16 AM LAY OUT WORKER Gender Identity Not on file Sexual Orientation Not on file Obstetrics History Para Term AB IAB SAB Ectopic Multiple Livin g Live Births 1 1 Date Outcome GA Total Labor Labor//3rd Weight Sex Type Anes PTL Nuvia A1 A5 Name Clin Term Last Filed Vital Signs Vital Sign Reading Time Taken Comments Blood Pressure 109/70 11/08/2024 1:19 PM CDT Pulse 61 11/08/2024 1:19 PM CDT Temperature 36.7 C (98 F) 10/24/2024 12:56 PM LAY OUT WORKER Respiratory Rate 16 08/02/2024 1:37 PM LAY OUT WORKER Oxygen Saturation 98% 11/08/2024 1:19 PM CDT Inhaled Oxygen Concentration - - Weight 75.9 kg (167 lb 6.4 oz) 11/08/2024 1:19 P M CDT Height 167.6 cm (5' 5.98 ) 11/08/2024 1:19 PM CD T Body Mass Index 27.03 11/08/2024 1:19 PM CDT Plan of Treatment Health Maintenance Due Date Last Done Comments Hepatitis B Screening 1973 Covid-19 Vaccine (2023-10 5 season) 2024 05/18/2023, 05/09/2022, 06/29/2021, Additional history exists Well Visit 65+ 08/02/2025 08/02/2024, 07/15/2023 Breast Cancer Screening-Mammogram 08/30/2025 08/30/2024, 07/08/2023, 07/08/2023 Osteoporosis Screening-Bone Density Scan 10/19/2025 10/19/2023, 10/19/2023 Depression Screening 10/24/2025 10/24/2024, 08/02/2024, 04/28/2024, Additional history exists Fall Risk Assessment 10/24/2025 10/24/2024, 08/02/2024, 06/14/2024, Additional history exists Colon Cancer Screening-Colonoscopy 05/27/2032 05/27/2022, 05/27/2022 DTaP/Tdap/Td Vaccine (3 - Td or Tdap) 12/09/2032 12/09/2022, 11/07/2013, 08/31/2006 Zoster Vaccine Completed 08/01/2019, 05/18/2019 Colon Cancer Screening-CT Colonography Discontinued 05/27/2022, 05/27/2022 Colon Cancer Screening-DNA Stool Discontinued 05/27/20, 05/27/2022 Colon Cancer Screening-FIT Discontinued 05/27/2022, Colon Cancer Screening-Sigmoidoscopy Discontinued 05/27/2022, 05/27/2022 Pneumococcal vaccine 65+ Completed 02/25/2024 Hepatitis C Screening Completed 02/26/2024 Influenza Vaccine Completed 05/19/2024, , 05/18/2023, Additional history exists Procedures Procedure Name Priority Date/Time Associated Diagnosis Comments POCT CREATININE FOR CONTRAST EVALUATION Routine 11/04/2024 5:49 PM LAY OUT WORKER US BREAST LEFT LIMITED Schedule Routine, Read Routine (OP Routine) 09/13/2024 3:34 PM LAY OUT WORKER Abnormality of left breast on screening mammogram DIAGNOSTIC MAMMOGRAM LEFT W BIENVENIDO Schedule Routine, Read Routine (OP Routine) 09/13/2024 2:20 PM LAY OUT WORKER Abnormality of left breast on screening mammogram SCREENING MAMMOGRAM BILATERAL W BIENVENIDO Schedule Routine, Read Routine (OP Routine) 08/30/2024 11:28 AM LAY OUT WORKER Screening mammogram, encounter for CT LOWER LEG CALF LEFT WO CONTRAST Schedule Routine, Read Routine (OP Routine) 08/25/2024 10:45 AM LAY OUT WORKER HEPATITIS C RNA, QUANTITATIVE, PCR Routine 02/26/2024 8:52 AM CDT Liver cyst DEXA SCAN Routine 10/19/2023 10:08 AM LAY OUT WORKER COLONOSCOPY Routine 05/27/2022 10:11 AM CDT from Last 3 Months or Most Recently Relevant to Health Maintenance Results * POCT creatinine for contrast evaluation (11/04/2024 5:49 PM LAY OUT WORKER) Creatinine POC 0.80 0.60 - 1.10 mg/dL Comment:Testing performed by : [facility], [address] [place] [address]., [id number] Blood 11/04/2024 5:49 PM LAY OUT WORKER 11/04/2024 5:49 PM LAY OUT WORKER us Conrad Das MD POINT OF CARE TEST ORDERABL ES Final Result Performing Organization Address City/State/[facility] Co ne Phone Number [facility] [address] [facility] Department [place] [address] * US Breast Left Limited (09/13/2024 3:34 PM LAY OUT WORKER) Anatomical Region Laterality Modality Breast Left Ultrasound 09/13/2024 5:26 PM LAY OUT WORKER Addenda Addendum by Ashley Amador MD on 09/15/2024 6:31 PM LAY OUT WORKER The report below was erroneously labeled as a BI-RADS 2. Because the structure is round with some degree of low level internal echoes, six-month follow-up ultrasound is recommended. BI-RADS 3-probably benign findings. Short-term follow-up is recommended. Electronically signed by: Ashley Amador M.D. Impressions 09/13/2024 5:26 PM LAY OUT WORKER No imaging findings to suggest malignancy are seen. The patient may return to screening mammography as per ACR guidelines. OVERALL FINAL ASSESSMENT: [id number] Electronically signed by: Ashley Amador M.D. Narrative 09/13/2024 5:26 PM LAY OUT WORKER EXAMINATION: LEFT DIGITAL DIAGNOSTIC MAMMOGRAM AND DIGITAL BREAST TOMOSYNTHESIS; LEFT BREAST SONOGRAM HISTORY: Additional imaging COMPARISON: August 30, 2024 TECHNIQUE: Full field digital mammographic views of the left breast(s) were performed, including computer aided detection (CAD) and digital breast tomosynthesis (DBT). Directed ultrasound evaluation of the left breast(s) was performed. BREAST PARENCHYMAL COMPOSITION: The breasts are heterogeneously dense, which may obscure small masses. MAMMOGRAM FINDINGS: The asymmetries questioned on screening study do not persist, and likely related to compression artifact. A tiny circumscribed nodule is seen in the region at 4-5 o'clock in the posterior depth. No suspicious calcifications are seen. There is no unexplained architectural distortion. There is no skin thickening seen. There are no mammographically abnormal lymph nodes seen in the axillae or elsewhere. ULTRASOUND FINDINGS: Sonography through the 4-5:00 position demonstrates the presence of a 3 mm cyst, thought to account for the mammographic nodule. Procedure Note Ashley Amador MD - 09/13/2024 EXAMINATION: LEFT DIGITAL DIAGNOSTIC MAMMOGRAM AND DIGITAL BREAST TOMOSYNTHESIS; LEFT BREAST SONOGRAM HISTORY: Additional imaging COMPARISON: August 30, 2024 TECHNIQUE: Full field digital mammographic views of the left breast(s) were performed, including computer aided detection (CAD) and digital breast tomosynthesis (DBT). Directed ultrasound evaluation of the left breast(s) was performed. BREAST PARENCHYMAL COMPOSITION: The breasts are heterogeneously dense, which may obscure small masses. MAMMOGRAM FINDINGS: The asymmetries questioned on screening study do not persist, and likely related to compression artifact. A tiny circumscribed nodule is seen in the region at 4-5 o'clock in the posterior depth. No suspicious calcifications are seen. There is no unexplained architectural distortion. There is no skin thickening seen. There are no mammographically abnormal lymph nodes seen in the axillae or elsewhere. ULTRASOUND FINDINGS: Sonography through the 4-5:00 position demonstrates the presence of a 3 mm cyst, thought to account for the mammographic nodule. IMPRESSION: No imaging findings to suggest malignancy are seen. The patient may return to screening mammography as per ACR guidelines. OVERALL FINAL ASSESSMENT: [id number] Electronically signed by: Ashley Amador M.D. Conrad Das MD [facility] MAMMO PROCEDURES Edited Result - Final * Diagnostic Mammogram Left W Bienvenido (09/13/2024 2:20 PM LAY OUT WORKER) Anatomical Region Laterality Modality Breast Left Mammography 09/13/2024 5:26 PM LAY OUT WORKER Addenda Addendum by Ashley Amador MD on 09/15/2024 6:31 PM LAY OUT WORKER The report below was erroneously labeled as a BI-RADS 2. Because the structure is round with some degree of low level internal echoes, six-month follow-up ultrasound is recommended. BI-RADS 3-probably benign findings. Short-term follow-up is recommended. Electronically signed by: Ashley Amador M.D. Impressions 09/13/2024 5:26 PM LAY OUT WORKER No imaging findings to suggest malignancy are seen. The patient may return to screening mammography as per ACR guidelines. OVERALL FINAL ASSESSMENT: [id number] Electronically signed by: Ashley Amador M.D. Narrative 09/13/2024 5:26 PM LAY OUT WORKER EXAMINATION: LEFT DIGITAL DIAGNOSTIC MAMMOGRAM AND DIGITAL BREAST TOMOSYNTHESIS; LEFT BREAST SONOGRAM HISTORY: Additional imaging COMPARISON: August 30, 2024 TECHNIQUE: Full field digital mammographic views of the left breast(s) were performed, including computer aided detection (CAD) and digital breast tomosynthesis (DBT). Directed ultrasound evaluation of the left breast(s) was performed. BREAST PARENCHYMAL COMPOSITION: The breasts are heterogeneously dense, which may obscure small masses. MAMMOGRAM FINDINGS: The asymmetries questioned on screening study do not persist, and likely related to compression artifact. A tiny circumscribed nodule is seen in the region at 4-5 o'clock in the posterior depth. No suspicious calcifications are seen. There is no unexplained architectural distortion. There is no skin thickening seen. There are no mammographically abnormal lymph nodes seen in the axillae or elsewhere. ULTRASOUND FINDINGS: Sonography through the 4-5:00 position demonstrates the presence of a 3 mm cyst, thought to account for the mammographic nodule. us Conrad Das MD IMG MAMMO PROCEDURES Edited Result - Final * (ABNORMAL) Screening Mammogram Bilateral W Bienvenido (08/30/2024 11:28 AM LAY OUT WORKER) Anatomical Region Laterality Modality Breast Bilateral Mammography Impressions 09/06/2024 2:34 PM LAY OUT WORKER Asymmetries on the left, for which additional mammographic and possibly sonographic imaging is recommended. BI-RADS ATLAS category (left): 0 - Incomplete: Needs Additional Imaging Evaluation There is no mammographic evidence of malignancy. A 1 year screening mammogram is recommended. The patient has been or will be contacted. We recommend annual screening mammography for women at average risk of breast cancer beginning at age 40, based on guidelines of the [employer] (ACR Practice Parameter for the Performance of Screening and Diagnostic Mammography) and [employer]. For women with and elevated risk of breast cancer, please refer to the ACR Practice Parameter for specific screening recommendations. The patient will be entered into a reminder system with a target due date of 1 year for her next screening exam. Narrative 09/06/2024 2:34 PM LAY OUT WORKER Screening Mammogram Bilateral W Bienvenido: 08/30/24 The study was acquired using full field digital technology and interpreted from soft copy. 2D digital mammographic views, as well as 3D digital tomosynthesis were performed in the CC and MLO projections. This study was resulted using Computer-Aided Detection (CAD). CLINICAL: Screening mammogram, encounter for. No relevant medical history has been documented for this patient. No known family history of breast cancer. Comparisons: 2022, 2020, and 2016. BREAST TISSUE: The breasts are heterogeneously dense, which may obscure small masses. FINDINGS: There is an asymmetry on each view on the left. These are not thought to probably correspond to one another. No suspicious calcifications or other suspicious findings are seen within either breast. There has been no suspicious change. us Self Screening Mammogram IMG MAMMO PROCEDURES Fi nal Result * CT Tibia Fibula Left WO Contrast (08/25/2024 10:45 AM LAY OUT WORKER) Anatomical Region Laterality Modality Lower Leg Left Computed Tomogra phy Historical Provider IMG CT PROCEDURES Final R esult * Hepatitis C (HCV) RNA PCR, quantitative Blood (02/26/2024 8:52 AM CDT) HCV RNA IU/mL <15 NOT DETECTED NOT DETECTED IU/mL [facility] HCV RNA log IU/mL <1.18 NOT DETECTED NOT DETECTED Log IU/mL [facility] Comment: For additional information, please refer to http://education.Trulioo/faq/RZT11r3 (This link is being provided for informational/ educational purposes only.) Blood 02/26/2024 8:52 AM CDT 02/26/2024 8:53 AM CDT Narrative [facility] - 02/27/2024 2:28 PM CDT FASTING:YES FASTING: YES Cristina Calero NP LAB MICROBIOLOGY - GENER AL ORDERABLES Final Result [facility] [address] [place] [phone] * DEXA SCAN (10/19/2023 10:08 AM LAY OUT WORKER) Historical Provider HEALTH MAINTENANCE Final Result * HM COLONOSCOPY (05/27/2022 10:11 AM CDT) Historical Provider HEALTH MAINTENANCE Final Result from Last 3 Months or Most Recently Relevant to Health Maintenance Insurance [employer] [place] [address] Advance Directives For more information, please contact: [phone] * Full Code (Latest Code Status on File) Date Activated Date Inactivated Comments 04/22/2024 3:29 PM 04/24/2024 7:06 PM Care Teams Demurrage Man Relationship Specialty Start Date End Date Conrad Das MD [address] [place] [address] PCP - General Family Medicine 02/25/24 Cristina Calero NP [address] [place] [address] Nurse Practitioner Gastroenterology 02/25/24 Epifanio Oleary MD [address] [address] Consulting Physician Cardiology 02/25/24 Edyta Linton MD [address] [place] [address] Consulting Physician Sleep Medicine 02/25/24 Christiano Bentley MD [address] [place] [address] Referring Physician Orthopedic Surgery 02/25/24 Mary Anaya MD [id number] [place] [address] Consulting Physician General Surgery 10/24/24
--- OUTSIDE RECORDS SUMMARY | 2024-11-09 13:27 | XMS_ITS | Referral Summary ---
Author Organization [facility] [address] Address [address] [place] [address] Care Team Providers Care Automatic Machine Attendant Name Role Phone Conrad Das MD Primary Care Provider Cristina Calero NP Unavailable Epifanio Oleary MD Unavailable Edyta Linton MD Unavailable Christiano Bentley MD Unavailable [phone] Mary Anaya MD Unavailable [phone] Encounters Date Type Department Care Team Description 11/08/2024 1:30 PM CDT Office Visit [facility] Sleep Medicine at [address] [place] [address] Edyta Linton MD Obstructive sleep apnea (Primary Dx); Hypersomnia; Overweight; Insomnia, unspecified type 11/04/2024 5:34 PM AGRICULTURAL EQUIPMENT MECHANIC - 11/04/2024 11:59 PM AGRICULTURAL EQUIPMENT MECHANIC Hospital Encounter [facility] [address] [place] [address] Epigastric abdominal tenderness without rebound tenderness Discharge Disposition: Discharge to home or self care 10/24/2024 1:00 PM AGRICULTURAL EQUIPMENT MECHANIC Office Visit [facility] Primary Care at [address] [address] Conrad Das MD Epigastric abdominal tenderness without rebound tenderness (Primary Dx) 10/19/2024 Nurse Triage [facility] Primary Care at [address] [phone] Conrad Das MD 09/28/2024 10:45 AM AGRICULTURAL EQUIPMENT MECHANIC Office Visit [facility] Cardiology [address] [facility] [address] [place] [phone] Epifanio Oleary MD Essential hypertension (Primary Dx); Palpitations; ART on CPAP 09/13/2024 2:05 PM AGRICULTURAL EQUIPMENT MECHANIC - 09/13/2024 11:59 PM AGRICULTURAL EQUIPMENT MECHANIC Hospital Encounter [facility] [address] [place] [address] Abnormality of left breast on screening mammogram Discharge Disposition: Discharge to home or self care 09/13/2024 2:05 PM AGRICULTURAL EQUIPMENT MECHANIC - 09/13/2024 11:59 PM AGRICULTURAL EQUIPMENT MECHANIC Hospital Encounter [facility] Medical [facility] [address] [place] [address] Abnormality of left breast on screening mammogram Discharge Disposition: Discharge to home or self care 09/07/2024 Orders Only [facility] Primary Care at [address] [phone] Conrad Das MD Abnormality of left breast on screening mammogram (Primary Dx) 08/30/2024 11:15 AM AGRICULTURAL EQUIPMENT MECHANIC - 08/30/2024 11:59 PM AGRICULTURAL EQUIPMENT MECHANIC Hospital Encounter [facility] Medical [facility] [address] [place] [address] Screening mammogram, encounter for Discharge Disposition: Discharge to home or self care from Last 3 Months Allergies Active Allergy Reactions Criticality Noted Date Comments [place]-3 Fatty Acids Palpitations Low 09/28/2024 Medications diclofenac sodium (VOLTAREN) 1 % gelIndications :Osteoarthriti s,Pain Apply 2 g topically 4 (four) times a day as needed (pain) 07/26/20 Active lisinopriL (PRINIVIL,ZEST RIL) 10 mg tabletIndicati [...] 10/2023 Assessment & Plan (08/02/2024 1:45 PM AGRICULTURAL EQUIPMENT MECHANIC): A(n) yearly Medicare Annual Wellness Visit has [...] when recommended to start Clonazepam prn instead. Immunizations Immunization Administration Dates Next Due Influenza, [...] Unspecified 08/31/2006 Tdap 12/09/2022,11/07/2013 ZOSTER Recombinant 08/01/2019,05/18/2019 Social History Tobacco Use Types Packs/Day Years [...] on file Legal Sex Female 7:16 AM AGRICULTURAL EQUIPMENT MECHANIC Gender Identity Not on file Sexual Orientation Not on file Last Filed Vital Signs Vital Sign Reading Time Taken Comments Blood Pressure 109/70 11/08/2024 1:19 PM CDT Pulse 61 11/08/2024 1:19 PM CDT Temperature 36.7 C (98 F) 10/24/2024 12:56 PM AGRICULTURAL EQUIPMENT MECHANIC Respiratory Rate 16 08/02/2024 1:37 PM AGRICULTURAL EQUIPMENT MECHANIC Oxygen Saturation 98% 11/08/2024 1:19 PM CDT Inhaled Oxygen Concentration - - Weight 75.9 kg (167 lb 6.4 oz) 11/08/2024 1:19 P M CDT Height 167.6 cm (5' 5.98 ) 11/08/2024 1:19 PM CD T Body Mass Index 27.03 11/08/2024 1:19 PM CDT Plan of Treatment Not on file Procedures Procedure Name Priority Date/Time Associated Diagnosis Comments POCT CREATININE FOR CONTRAST EVALUATION Routine 11/04/2024 5:49 PM AGRICULTURAL EQUIPMENT MECHANIC US BREAST LEFT LIMITED Schedule Routine, Read Routine (OP Routine) 09/13/2024 3:34 PM AGRICULTURAL EQUIPMENT MECHANIC Abnormality of left breast on screening mammogram DIAGNOSTIC MAMMOGRAM LEFT W BIENVENIDO Schedule Routine, Read Routine (OP Routine) 09/13/2024 2:20 PM AGRICULTURAL EQUIPMENT MECHANIC Abnormality of left breast on screening mammogram SCREENING MAMMOGRAM BILATERAL W BIENVENIDO Schedule Routine, Read Routine (OP Routine) 08/30/2024 11:28 AM AGRICULTURAL EQUIPMENT MECHANIC Screening mammogram, encounter for CT LOWER LEG CALF LEFT WO CONTRAST Schedule Routine, Read Routine (OP Routine) 08/25/2024 10:45 AM AGRICULTURAL EQUIPMENT MECHANIC HEPATITIS C RNA, QUANTITATIVE, PCR Routine 02/26/2024 8:52 AM CDT Liver cyst HM DEXA SCAN Routine 10/19/2023 10:08 AM AGRICULTURAL EQUIPMENT MECHANIC HM COLONOSCOPY Routine 05/27/2022 10:11 AM CDT from Last 3 Months or Most Recently Relevant to Health Maintenance Results * POCT creatinine for contrast evaluation (11/04/2024 5:49 PM AGRICULTURAL EQUIPMENT MECHANIC) Creatinine POC 0.80 0.60 - 1.10 mg/dL Comment:Testing performed by : [facility], [address] [place] [address], [place]., [address] Blood 11/04/2024 5:49 PM AGRICULTURAL EQUIPMENT MECHANIC 11/04/2024 5:49 PM AGRICULTURAL EQUIPMENT MECHANIC us Conrad Das MD POINT OF CARE TEST ORDERABL ES Final Result [facility] [address] [facility] [place] [address] * US Breast Left Limited (09/13/2024 3:34 PM AGRICULTURAL EQUIPMENT MECHANIC) Anatomical Region Laterality Modality Breast Left Ultrasound 09/13/2024 5:26 PM AGRICULTURAL EQUIPMENT MECHANIC Addenda Addendum by Ashley Amador MD on 09/15/2024 6:31 PM AGRICULTURAL EQUIPMENT MECHANIC The report below was erroneously labeled as a BI-RADS 2. Because the structure is round with some degree of low level internal echoes, six-month follow-up ultrasound is recommended. BI-RADS 3-probably benign findings. Short-term follow-up is recommended. Electronically signed by: Ashley Amador M.D. Impressions 09/13/2024 5:26 PM AGRICULTURAL EQUIPMENT MECHANIC No imaging findings to suggest malignancy are seen. The patient may return to screening mammography as per ACR guidelines. OVERALL FINAL ASSESSMENT: [id number] Electronically signed by: Ashley Amador M.D. Narrative 09/13/2024 5:26 PM AGRICULTURAL EQUIPMENT MECHANIC EXAMINATION: LEFT DIGITAL DIAGNOSTIC MAMMOGRAM AND DIGITAL [...] as per ACR guidelines. OVERALL FINAL ASSESSMENT: [id number] Electronically signed by: Ashley Amador M.D. Conrad Das MD IMG MAMMO PROCEDURES Edited Result - Final * Diagnostic Mammogram Left W Bienvenido (09/13/2024 2:20 PM AGRICULTURAL EQUIPMENT MECHANIC) Anatomical Region Laterality Modality Breast Left Mammography 09/13/2024 5:26 PM AGRICULTURAL EQUIPMENT MECHANIC Addenda Addendum by Ashley Amador MD on 09/15/2024 6:31 PM AGRICULTURAL EQUIPMENT MECHANIC The report below was erroneously labeled as a BI-RADS 2. Because the structure is round with some degree of low level internal echoes, six-month follow-up ultrasound is recommended. BI-RADS 3-probably benign findings. Short-term follow-up is recommended. Electronically signed by: Ashley Amador M.D. Impressions 09/13/2024 5:26 PM AGRICULTURAL EQUIPMENT MECHANIC No imaging findings to suggest malignancy are seen. The patient may return to screening mammography as per ACR guidelines. OVERALL FINAL ASSESSMENT: [id number] Electronically signed by: Ashley Amador M.D. Narrative 09/13/2024 5:26 PM AGRICULTURAL EQUIPMENT MECHANIC EXAMINATION: LEFT DIGITAL DIAGNOSTIC MAMMOGRAM AND DIGITAL [...] Mammogram Bilateral W Bienvenido (08/30/2024 11:28 AM AGRICULTURAL EQUIPMENT MECHANIC) Anatomical Region Laterality Modality Breast Bilateral Mammography Impressions 09/06/2024 2:34 PM AGRICULTURAL EQUIPMENT MECHANIC Asymmetries on the left, for which additional [...] age 42, based on guidelines of the [employer] (ACR Practice Parameter for the Performance of Screening and Diagnostic Mammography) and [employer]. For women with and elevated risk of breast cancer, please refer to the ACR Practice Parameter for specific screening recommendations. The patient will be entered into a reminder system with a target due date of 1 year for her next screening exam. Narrative 09/06/2024 2:34 PM AGRICULTURAL EQUIPMENT MECHANIC Screening Mammogram Bilateral W Bienvenido: 08/30/24 The [...] Fibula Left WO Contrast (08/25/2024 10:45 AM AGRICULTURAL EQUIPMENT MECHANIC) Anatomical Region Laterality Modality Lower Leg Left Computed Tomogra phy Historical Provider MD IMG CT PROCEDURES Final R esult * Hepatitis C (HCV) RNA PCR, quantitative Blood (02/26/2024 8:52 AM CDT) HCV RNA IU/mL <15 NOT DETECTED NOT DETECTED IU/mL [facility] HCV RNA log IU/mL <1.18 NOT DETECTED NOT DETECTED Log IU/mL [facility] Comment: For additional information, please refer to http://[email or web address].Discrete Sport/faq/JRW86b1 (This link is being provided for informational/ educational purposes only.) Blood 02/26/2024 8:52 AM CDT 02/26/2024 8:53 AM CDT Narrative [facility] - 02/27/2024 2:28 PM CDT FASTING:YES FASTING: YES us Cristina Calero ROUGHER OPERATOR LAB MICROBIOLOGY - GENER AL ORDERABLES Final Result [facility] [address] [place] [address] * DEXA SCAN (10/19/2023 10:08 AM AGRICULTURAL EQUIPMENT MECHANIC) Historical Provider HEALTH MAINTENANCE Final Result * COLONOSCOPY (05/27/2022 10:11 AM CDT) Historical Provider HEALTH MAINTENANCE Final Result from Last 3 Months or Most Recently Relevant to Health Maintenance Insurance [facility] Address: [place] [id number] [facility] Address: [address] [place] [phone] Advance Directives For more information, please contact: [phone] * Full Code (Latest Code Status on File) Date Activated Date Inactivated Comments 04/22/2024 3:29 PM 04/24/2024 7:06 PM Care Teams Automatic Machine Attendant Relationship Specialty Start Date End Date Conrad Das MD [address] [place] [address] PCP - General Family Medicine 02/25/24 Cristina Calero, AMY [address] [place] [address] Nurse Practitioner Gastroenterology 02/25/24 Epifanio Oleary MD [address] [address] Consulting Physician Cardiology 02/25/24 Edyta Linton MD [address] [place] [address] Consulting Physician Sleep Medicine 02/25/24 Christiano Bentley MD [address] [facility] [address] [place] [address] Referring Physician Orthopedic Surgery 02/25/24 Mary Anaya MD [address] [facility] [id number] [place] [address] Consulting Physician General Surgery 10/24/24
[2024-11-09 13:39] LABS: Basophils Percent Auto 0.5 % (0.2-1.2); Eosinophils Absolute Auto 0.4 K/mm3 (0-0.3); Eosinophils Percent Auto 4.7 % (0-4.4); Hematocrit 38.2 % (37.0-47.0); Hemoglobin 12.1 g/dL (12.0-15.0); Immature Granulocyte Absolute 0.02 K/mm3 (0.00-0.031); Immature Granulocyte Percent A 0.2 % (0-0.5); Lymphocytes Absolute Auto 2.88 K/mm3 (0.9-3.2); Mean Corpuscular HGB Conc 31.7 g/dl (32-36); Mean Corpuscular Hemoglobin 29.2 pg (26-34); Mean Corpuscular Volume 92.3 fl (80-100); Mean Platelet Volume 10.3 fl (7.4-10.4); Monocytes Absolute Auto 0.5 K/mm3 (0.1-0.6); Monocytes Percent Auto 5.9 % (2.6-8.5); Neutrophils Absolute Auto 4.6 K/mm3 (1.3-6.7); Neutrophils Percent Auto 54.7 % (45.5-73.1); Platelet Count Result 259 k/mm3 (150-375); Red Blood Count 4.14 M/mm3 (4.2-5.4); Red Cell Distribution Width 13.5 % (11.5-14.5); White Blood Count 8.5 K/mm3 (4.5-10.0)
[2024-11-09 14:03] LABS: Albumin Level 4.5 g/dL (3.5-5.1); Estimated Glomerular Filt Rate > 60; Glucose 103 mg/dL (65-110)
[2024-11-09 14:45] LABS: Urine Cotinine NEGATIVE
[2024-11-09 14:49] LABS: MRSA (PCR) NOT DETECTED (NOT DETECTE)
[2024-11-09 16:51] LABS: Hemoglobin A1C 5.6 % (<5.7)
== END 2024-11-09 11:33 | disposition home or self-care (01) ==
LOC: ANHSURGERY 11:37
PROVIDERS: PCP Family Medicine; Visit Provider Orthopaedic Surgery
DX: Z01.818 Encounter for other preprocedural examination (principal); M17.12 Unilateral primary osteoarthritis, left knee; R94.31 Abnormal electrocardiogram [ECG] [EKG]
CPT/HCPCS: 80307; 82040; 82565; 82947; 83036; 85025; 87641; 93005

== ENCOUNTER 2024-12-01 00:04 | Day surgery (SDC) | payer MEDICARE, SELFPAY ==
[2024-11-09 12:07] VITALS: BP 108/73; PULSE 57; RESP 16; TEMP 36.6; O2SAT 100; BMI 28.3
--- NOTE | 2024-11-09 12:26 | PC.NURSE ---
Report to the Outpatient Waiting Room, entrance under the green pavilion located off [facility], at time ___6:00AM____ on date ___12/01/24____. Planned Procedure Time: __7:30AM .? Time changes happen often and if your time is changed the preop area will call you the afternoon before. - You and your visitor will be asked to self-screen and do not enter if you have any COVID symptoms. Please call surgeon if you need to reschedule. - A mask is optional within the hospital at this time. Patients may have clear liquids (water, carbonated beverages, clear teas, apple juice) until 3 hours prior to surgery (4:30AM) with a maximum of 20 ounces. - No food from midnight until time of surgery and no smoking, or chewing tobacco (or any form of nicotine). No chewing gum, candy or mints. Take only the following medications with a SIP of water on the morning of surgery: ___METOPROLOL, VENLAFAXINE DO NOT STOP ANY OF YOUR OTHER PRESCRIPTION MEDICATIONS PRIOR TO SURGERY EXCEPT THE FOLLOWING Medications to discontinue per physician ___HOLD ASPIRIN, ALL VITAMINS/SUPPLEMENTS AND NSAIDS(DICLOFENAC, IBUPROFEN) 7 DAYS PRE-OP PER DR MAR Date to take last dose____11/23/24 Please no make-up, nail occitan, hairspray, perfume, deodorant, or body powder the day of surgery.? No jewelry (including any body piercings) or valuables the day of surgery, leave them at home.? Please take a shower or bath the night before, or the morning of, surgery with an antibacterial soap.? Wear comfortable, loose fitting clothing.? - Jewelry must be removed prior to entering the operating room.? Rings and piercings that are not removed may be cut off. - The hospital will not accept responsibility for valuables.? - Please leave all valuables, including medications, at home the day of surgery. If you are going home after surgery, a licensed shuttle van driver must drive you home.? - NO public transportation without another adult if you receive anesthesia. - We recommend that an adult stay with you for 24 hours following discharge. - We also recommend that you do not drive, make important decision, drink alcoholic beverages, or take any drugs that were not prescribed by your health care provider for at least 24 hours after your discharge time. Follow any additional instructions given to you from your surgeon. Telephone instructions given to ___PATIENT and asked if any additional questions and then verbalized understanding. Patient advised to call surgeon office or pre surgery nurse liaison [phone] if any additional questions.
--- NOTE | 2024-11-30 14:14 | P.PNAN_ITS ---
Anes - Eval Pre Procedure Procedure: Operation Date: 12/01/24 07:30 Proposed Procedures p Left Custom Total Knee Arthroplasty - Christiano Bentley MD Date/Time: 11/30/24 14:14 Pre Op Diagnosis: Prim O.A. Left Knee Patient Data Age: 69 Gender: F Height: 1.64 m Weight: 76 kg Last Vital Signs Temp 97.8 F 11/09/24 12:07 Pulse 57 L 11/09/24 12:07 Resp 16 11/09/24 12:07 BP 108/73 11/09/24 12:07 Pulse Ox 100 11/09/24 12:07 Allergies Allergy/AdvReac Type Severity Reaction Status Date / Time No Known Allergies Allergy Verified 11/09/24 12:01 Home Medications ?Medication ?Instructions ?Recorded ?Confirmed ?Type diclofenac sodium 1 % topical gel 4 gm topical QID #100 grams 07/29/19 11/09/24 Rx miscellaneous medical supply 1 ea miscellaneous QHS #1 ea 11/27/22 11/09/24 Rx aspirin 81 mg tablet,delayed 81 mg PO DAILY 02/19/23 11/09/24 History release (Adult Low Dose Aspirin) lisinopril 10 mg tablet 10 mg PO DAILY #90 tabs 09/28/23 11/09/24 Rx venlafaxine 37.5 mg See Rx Instructions .Route 09/28/23 11/09/24 Rx capsule,extended release 24 hr .COMPLEX #90 caps eszopiclone 3 mg tablet 3 mg PO QHS #90 tabs 03/11/24 11/09/24 Rx ibuprofen 200 mg tablet (Advil) 200 mg PO Q6H PRN pain 11/09/24 11/09/24 History metoprolol succinate 25 mg 25 mg PO QAM 11/09/24 11/09/24 History tablet,extended release 24 hr multivitamin (Daily Multi-Vitamin 1 tablet PO DAILY 11/09/24 11/09/24 History tablet) Patient hx anesthesia problems: none Family hx anesthesia problems: none Results Review: All pre-operative results and documents have been reviewed as part of the pre- operative evaluation. [facility] Past Medical History Medical History Arthritis Heart palpitations Benign essential hypertension Obstructive sleep apnea Bradycardia Anxiety Depression Obstructive sleep apnea (adult) (pediatric) Surgical History Surgical History H/O colonoscopy History of hysterectomy History of cataract surgery Family History Family History Mother Hypertension Osteoporosis Father Family history of lung cancer, Onset Age: 59 Social History Social History Smoking packs per day: 0.25 Smoking cigarettes per day: 5.0 Years smoked: 10 Smoking pack-years: 2.50 Smoking status: Never smoker Tobacco type: cigarettes Smoking end date: 02/28/09 Alcohol intake: current Substance use: never Substance use type: does not use Do You Feel Safe in your Home?: Yes Lack of Transportation: No Lack of Food: Never True Current Housing: I Have Housing Concerned About Future Housing: No Difficulty Paying Gas/Electric Bills: No Difficulty Paying for Meds: No Currently Unemployed: No Education: High School Diploma/GED Difficulty w/ Childcare or Family Care: No Living arrangements: with family Additional living arrangements comments: [facility] Spiritual care concerns: No Comments SR VR63 on 11/09, EF 79 Exam Day of Procedure 11/30/24 14:14 Patient weight: overweight
[2024-12-01] VITALS (14 sets, daily range): BP systolic 94–113; BP diastolic 44–74; PULSE 60–88; RESP 8–20; TEMP 36.3–36.4; O2SAT 94–100
--- NOTE | ~2024-12-01 | XR_ITS ---
EXAMINATION: [id number] DATE: 12/01/2024 10:03 INDICATION: Postoperative evaluation following left total knee arthroplasty. TECHNIQUE: Anteroposterior and lateral views of the left knee were obtained. COMPARISON: None. FINDINGS: Left total knee arthroplasty with patellar resurfacing appears well seated and in near anatomic align ment. No fractures identified. Expected postoperative subcutaneous and intra-articular gas. IMPRESSION: 1. Left total knee arthroplasty, negative for postoperative purposes. Reviewed, dictated and finalized at location A.
--- OUTSIDE RECORDS SUMMARY | 2024-12-01 00:06 | XMS_ITS | Referral Summary ---
Author Organization [facility] [address] Address [address] [place] [address] Care Team Providers Care Ip Litigation Paralegal Name Role Phone Conrad Das MD Primary Care Provider Cristina Calero ERRAND RUNNER Unavailable Epifanio Oleary MD Unavailable Edyta Linton MD Unavailable Christiano Bentley MD Unavailable [phone] Mary Anaya MD Unavailable [phone] Encounters Date Type Department Care Team Description 11/10/2024 Results Follow-Up [facility] Primary Care at [address] [address] Rehana Gaines ERRAND RUNNER 11/08/2024 1:30 PM CDT Office Visit [facility] Sleep Medicine at [address] [place] [address] Edyta Linton MD Obstructive sleep apnea (Primary Dx); Hypersomnia; Overweight; Insomnia, unspecified type 11/04/2024 5:34 PM FLOUR MIXER HELPER - 11/04/2024 11:59 PM FLOUR MIXER HELPER Hospital Encounter [facility] [address] [place] [address] Epigastric abdominal tenderness without rebound tenderness Discharge Disposition: Discharge to home or self care 10/24/2024 1:00 PM FLOUR MIXER HELPER Office Visit [facility] at [address] [id number] Conrad Das MD Epigastric abdominal tenderness without rebound tenderness (Primary Dx) 10/19/2024 Nurse Triage [facility] at [address] [phone] Conrad Das MD 09/28/2024 10:45 AM FLOUR MIXER HELPER Office Visit [facility] [address] [place] [address] Epifanio Oleary MD Essential hypertension (Primary Dx); Palpitations; ART on CPAP 09/13/2024 2:05 PM FLOUR MIXER HELPER - 09/13/2024 11:59 PM FLOUR MIXER HELPER Hospital Encounter [facility] Medical Office [address] [place] [address] Abnormality of left breast on screening mammogram Discharge Disposition: Discharge to home or self care 09/13/2024 2:05 PM FLOUR MIXER HELPER - 09/13/2024 11:59 PM FLOUR MIXER HELPER Hospital Encounter [facility] Medical Office [facility] [address] [place] [address] Abnormality of left breast on screening mammogram Discharge Disposition: Discharge to home or self care 09/07/2024 Orders Only [facility] at [address] [address] Conrad Das MD Abnormality of left breast on screening mammogram (Primary Dx) from Last 3 Months Allergies Active Allergy Reactions Criticality Noted Date Comments Deland-3 Fatty Acids Palpitations Low 09/28/2024 Medications diclofenac sodium (VOLTAREN) 1 % gelIndications: Osteoarthritis, Pain Apply 2 g topically 4 (four) times a day as needed (pain) 9 Active lisinopriL (PRINIVIL,ZESTR IL) 10 mg tabletIndicatio ns:hypertension Take 1 tablet (10 mg total) by mouth nightly Active venlafaxine XR (EFFEXOR-XR) 37.5 mg 24 hr capsuleIndicati ons:Generalized Anxiety Disorder Take 1 capsule (37.5 mg total) by mouth with lunch Active clonazePAM (KlonoPIN) 0.5 mg tablet Take 0.5 tablets (0.25 mg total) by mouth 2 (two) times a day as needed for anxiety 30 tablet 4 Active eszopiclone (LUNESTA) 3 mg tablet Take 1 tablet (3 mg total) by mouth nightly at bedtime 30 tablet 2 4 Active aspirin 81 mg enteric coated tablet Take 1 tablet (81 mg total) by mouth nightly Active metoprolol XL (TOPROL-XL) 25 mg extended release tablet Take 1 tablet (25 mg total) by mouth daily 90 tablet 6 5 09/28/19 26 Active valACYclovir (VALTREX) 1 gram tablet TAKE 2 TABLETS(2000 MG) BY MOUTH TWICE DAILY FOR 1 DAY 4 tablet 5 5 Active dicyclomine (BENTYL) 10 mg capsuleIndicati ons:Abdominal Pain with Cramps Take 1 capsule (10 mg total) by mouth 4 (four) times a day before meals and nightly PRN 120 capsule 11 5 10/24/19 26 Active Active Problems Problem Noted Date Diagnosed Date Encounter for Medicare annual wellness exam 10/2023 Assessment & Plan (08/02/2024 1:45 PM FLOUR MIXER HELPER): A(n) yearly Medicare Annual Wellness Visit has [...] on file Legal Sex Female 7:16 AM FLOUR MIXER HELPER Gender Identity Not on file Sexual Orientation Not on file Last Filed Vital Signs Vital Sign Reading Time Taken Comments Blood Pressure 109/70 11/08/2024 1:19 PM CDT Pulse 61 11/08/2024 1:19 PM CDT Temperature 36.7 C (98 F) 10/24/2024 12:56 PM FLOUR MIXER HELPER Respiratory Rate 16 08/02/2024 1:37 PM FLOUR MIXER HELPER Oxygen Saturation 98% 11/08/2024 1:19 PM CDT Inhaled Oxygen Concentration - - Weight 75.9 kg (167 lb 6.4 oz) 11/08/2024 1:19 P M CDT Height 167.6 cm (5' 5.98 ) 11/08/2024 1:19 PM CD T Body Mass Index 27.03 11/08/2024 1:19 PM CDT Plan of Treatment Not on file Procedures Procedure Name Priority Date/Time Associated Diagnosis Comments CT ABDOMEN PELVIS W CONTRAST Routine 11/04/2024 5:54 PM FLOUR MIXER HELPER Epigastric abdominal tenderness without rebound tenderness POCT CREATININE FOR CONTRAST EVALUATION Routine 11/04/2024 5:49 PM FLOUR MIXER HELPER US BREAST LEFT LIMITED Schedule Routine, Read Routine (OP Routine) 09/13/2024 3:34 PM FLOUR MIXER HELPER Abnormality of left breast on screening mammogram DIAGNOSTIC MAMMOGRAM LEFT W BIENVENIDO Schedule Routine, Read Routine (OP Routine) 09/13/2024 2:20 PM FLOUR MIXER HELPER Abnormality of left breast on screening mammogram SCREENING MAMMOGRAM BILATERAL W BIENVENIDO Schedule Routine, Read Routine (OP Routine) 08/30/2024 11:28 AM FLOUR MIXER HELPER Screening mammogram, encounter for HEPATITIS C RNA, QUANTITATIVE, PCR Routine 02/26/2024 8:52 AM CDT Liver cyst HM DEXA SCAN Routine 10/19/2023 10:08 AM FLOUR MIXER HELPER HM COLONOSCOPY Routine 05/27/2022 10:11 AM CDT from Last 3 Months or Most Recently Relevant to Health Maintenance Results * CT Abdomen Pelvis W Contrast (11/04/2024 5:54 PM FLOUR MIXER HELPER) Anatomical Region Laterality Modality Body N/A Computed Tomogra phy 11/10/2024 10:5 6 AM CDT Narrative 11/10/2024 11:11 AM CDT EXAM DESCRIPTION: CT ABDOMEN PELVIS W CONTRAST REASON FOR STUDY: Abdominal pain, post-op Upper mid to rt quad pain for 3 weeks. 2 liver cysts removed in May 2024. States the cyst pain felt similar to this pain. Sx hx of hysterectomy, liver cyst removal x2 TECHNIQUE: CT scan of the abdomen and pelvis performed with intravenous and without oral contrast using helical scanning technique with dynamic intravenous contrast injection. Reconstructed coronal and sagittal MPR images reviewed. All images stored on PACS. Automated exposure control was used as a dose optimization technique for this examination. CONTRAST TYPE/DOSE: 100mL of IOVERSOL 350 MG IODINE/ML INTRAVENOUS SYRINGE injected via intravenous COMPARISON: 04/22/2024 FINDINGS: LOWER CHEST: No consolidation or effusion. Granulomatous calcification left base unchanged. Additional granulomatous calcification retrocrural region. LIVER: Normal size. Multiple hypodensities are again demonstrated right and left lobes. The largest within the lateral segment of the left lobe are much smaller or resolved since previous. No new or enlarging cysts are demonstrated no subcapsular fluid or surrounding induration. GALLBLADDER: Normally distended BILE DUCTS: No intrahepatic or extrahepatic ductal dilatation. SPLEEN: Normal size. No focal lesions. PANCREAS: No identified cystic or solid masses. No significant calcifications. No adjacent inflammation or peripancreatic fluid collections. Pancreatic duct not dilated. ADRENALS: Normal. KIDNEYS/URINARY TRACT: No identified significant cystic or solid masses. No visualized stones. No hydronephrosis or hydroureter. Symmetric enhancement. Urinary bladder is unremarkable. GI: No dilated bowel loops. No obvious wall thickening. Normal appendix. No significant diverticular disease. Moderate to large stool burden. Subtle redundant appearance of small bowel in the left upper quadrant with a subtle suggestion of short segmental intussusception likely transitory thing without surrounding induration. Adjacent nonenlarged lymph nodes along the small bowel mesentery are likely postinflammatory and are generally similar to previous. Overall induration is much less pronounced than prior exam. PERITONEUM: No ascites or free air. RETROPERITONEUM: Nonenlarged lymph nodes periaortic space similar to previous. REPRODUCTIVE: No significant abnormality. VASCULATURE: No abdominal aortic aneurysm. MUSCULOSKELETAL: No significant abnormality. OTHER: No other abnormality. IMPRESSION: No acute finding. Multiple hepatic cysts are again demonstrated. The largest cyst within the lateral segment left lobe of liver is much smaller or resolved since prior exam of 04/22/2024. No new or enlarging lesions. Nonenlarged lymph nodes periaortic space similar to previous. Short segmental small-bowel intussusception identified likely an incidental finding with overall improvement in induration of small-bowel mesentery since previous. Moderate to large stool burden. THIS IS AN ELECTRONICALLY VERIFIED FINAL REPORT 11/10/2024 11:11 AM - Electronically signed by Kartik Montes M.D. RB: JOHN Report ID: [id number] Reading Location: [id number] Procedure Note Kartik Montes MD - 11/10/2024 EXAM DESCRIPTION: CT ABDOMEN PELVIS W CONTRAST REASON FOR STUDY: Abdominal pain, post-op Upper mid to rt quad pain for 3 weeks. 2 liver cysts removed in May 2024. States the cyst pain felt similar to this pain. Sx hx of hysterectomy,liver cyst removal x2 TECHNIQUE: CT scan of the abdomen and pelvis performed with intravenousand without oral contrast using helical scanning technique with dynamic intravenous contrast injection. Reconstructed coronal and sagittal MPRimages reviewed. All images stored on PACS. Automated exposure control was usedas a dose optimization technique for this examination. CONTRAST TYPE/DOSE: 100mL of IOVERSOL 350 MG IODINE/ML INTRAVENOUSSYRINGE injected via intravenous COMPARISON: 04/22/2024 FINDINGS: LOWER CHEST: No consolidation or effusion. Granulomatous calcification left base unchanged. Additional granulomatous calcification retrocrural region. LIVER: Normal size. Multiple hypodensities are again demonstrated rightand left lobes. The largest within the lateral segment of the left lobe aremuch smaller or resolved since previous. No new or enlarging cysts are demonstrated no subcapsular fluid or surrounding induration. GALLBLADDER: Normally distended BILE DUCTS: No intrahepatic or extrahepatic ductal dilatation. SPLEEN: Normal size. No focal lesions. PANCREAS: No identified cystic or solid masses. No significant calcifications. No adjacent inflammation or peripancreatic fluidcollections. Pancreatic duct not dilated. ADRENALS: Normal. KIDNEYS/URINARY TRACT: No identified significant cystic or solid masses.No visualized stones. No hydronephrosis or hydroureter. Symmetricenhancement. Urinary bladder is unremarkable. GI: No dilated bowel loops. No obvious wall thickening. Normalappendix. No significant diverticular disease. Moderate to large stool burden. Subtle redundant appearance of small bowel in the left upper quadrant witha subtle suggestion of short segmental intussusception likely transitorything without surrounding induration. Adjacent nonenlarged lymph nodes along the small bowel mesentery arelikely postinflammatory and are generally similar to previous. Overallinduration is much less pronounced than prior exam. PERITONEUM: No ascites or free air. RETROPERITONEUM: Nonenlarged lymph nodes periaortic space similar to previous. REPRODUCTIVE: No significant abnormality. VASCULATURE: No abdominal aortic aneurysm. MUSCULOSKELETAL: No significant abnormality. OTHER: No other abnormality. IMPRESSION: No acute finding. Multiple hepatic cysts are again demonstrated. The largest cyst withinthe lateral segment left lobe of liver is much smaller or resolved since prior exam of 04/22/2024. No new or enlarging lesions. Nonenlarged lymph nodes periaortic space similar to previous. Short segmental small-bowel intussusception identified likely anincidental finding with overall improvement in induration of small-bowel mesenterysince previous. Moderate to large stool burden. THIS IS AN ELECTRONICALLY VERIFIED FINAL REPORT 11/10/2024 11:11 AM - Electronically signed by Kartik Montes M.D. RB: JOHN Report ID: [id number] Reading Location: [id number] Conrad Das MD IMG CT PROCEDURES Final Res ult * POCT creatinine for contrast evaluation (11/04/2024 5:49 PM FLOUR MIXER HELPER) Creatinine POC 0.80 0.60 - 1.10 mg/dL Comment:Testing performed by : [facility], [address] [place] [address]., [id number] Blood 11/04/2024 5:49 PM FLOUR MIXER HELPER 11/04/2024 5:49 PM FLOUR MIXER HELPER Conrad Das MD POINT OF CARE TEST ORDERABL ES Final Result [facility] [address] [facility] [place] [address] * US Breast Left Limited (09/13/2024 3:34 PM FLOUR MIXER HELPER) Anatomical Region Laterality Modality Breast Left Ultrasound 09/13/2024 5:26 PM FLOUR MIXER HELPER Addenda Addendum by Ashley Amador MD on 09/15/2024 6:31 PM FLOUR MIXER HELPER The report below was erroneously labeled as a BI-RADS 2. Because the structure is round with some degree of low level internal echoes, six-month follow-up ultrasound is recommended. BI-RADS 3-probably benign findings. Short-term follow-up is recommended. Electronically signed by: Ashley Amador M.D. Impressions 09/13/2024 5:26 PM FLOUR MIXER HELPER No imaging findings to suggest malignancy are seen. The patient may return to screening mammography as per ACR guidelines. OVERALL FINAL ASSESSMENT: [id number] Electronically signed by: Ashley Amador M.D. Narrative 09/13/2024 5:26 PM FLOUR MIXER HELPER EXAMINATION: LEFT DIGITAL DIAGNOSTIC MAMMOGRAM AND DIGITAL [...] as per ACR guidelines. OVERALL FINAL ASSESSMENT: [id number] Electronically signed by: Ashley Amador M.D. Conrad Das MD IMG MAMMO PROCEDURES Edited Result - Final * Diagnostic Mammogram Left W Bienvenido (09/13/2024 2:20 PM FLOUR MIXER HELPER) Anatomical Region Laterality Modality Breast Left Mammography 09/13/2024 5:26 PM FLOUR MIXER HELPER Addenda Addendum by Ashley Amador MD on 09/15/2024 6:31 PM FLOUR MIXER HELPER The report below was erroneously labeled as a BI-RADS 2. Because the structure is round with some degree of low level internal echoes, six-month follow-up ultrasound is recommended. BI-RADS 3-probably benign findings. Short-term follow-up is recommended. Electronically signed by: Ashley Amador M.D. Impressions 09/13/2024 5:26 PM FLOUR MIXER HELPER No imaging findings to suggest malignancy are seen. The patient may return to screening mammography as per ACR guidelines. OVERALL FINAL ASSESSMENT: [id number] Electronically signed by: Ashley Amador M.D. Narrative 09/13/2024 5:26 PM FLOUR MIXER HELPER EXAMINATION: LEFT DIGITAL DIAGNOSTIC MAMMOGRAM AND DIGITAL [...] Mammogram Bilateral W Bienvenido (08/30/2024 11:28 AM FLOUR MIXER HELPER) Anatomical Region Laterality Modality Breast Bilateral Mammography Impressions 09/06/2024 2:34 PM FLOUR MIXER HELPER Asymmetries on the left, for which additional [...] age 40, based on guidelines of the [employer] (ACR Practice Parameter for the Performance of Screening and Diagnostic Mammography) and [place] [employer]. For women with and elevated risk of breast cancer, please refer to the ACR Practice Parameter for specific screening recommendations. The patient will be entered into a reminder system with a target due date of 1 year for her next screening exam. Narrative 09/06/2024 2:34 PM FLOUR MIXER HELPER Screening Mammogram Bilateral W Bienvenido: 08/30/24 The [...] breast. There has been no suspicious change. Self Screening Mammogram IMG MAMMO PROCEDURES Fi nal Result * Hepatitis C (HCV) RNA PCR, quantitative Blood (02/26/2024 8:52 AM CDT) Pathologist [facility] HCV RNA IU/mL <15 NOT DETECTED NOT DETECTED IU/mL [facility] HCV RNA log IU/mL <1.18 NOT DETECTED NOT DETECTED Log IU/mL [facility] Comment: For additional information, please refer to http://education.[employer]/faq/BMK56w6 (This link is being provided for informational/ educational purposes only.) Blood 02/26/2024 8:52 AM CDT 02/26/2024 8:53 AM CDT Narrative [facility] - 02/27/2024 2:28 PM CDT FASTING:YES FASTING: YES Cristina Calero ERRAND RUNNER LAB MICROBIOLOGY - [facility] ORDERABLES Final Result [facility] [address] [place] [address] * DEXA SCAN (10/19/2023 10:08 AM FLOUR MIXER HELPER) Historical Provider HEALTH MAINTENANCE Final Result * COLONOSCOPY (05/27/2022 10:11 AM CDT) Historical Provider HEALTH MAINTENANCE Final Result from Last 3 Months or Most Recently Relevant to Health Maintenance Insurance [facility] MEDICARE ADVANTAGE [facility] [id number] [employer]HC MEDICARE ADVANTAGE Advance Directives For more information, please contact: [phone] * Full Code (Latest Code Status on File) Date Activated Date Inactivated Comments 04/22/2024 3:29 PM 04/24/2024 7:06 PM Care Teams Ip Litigation Paralegal Relationship Specialty Start Date End Date Conrad aDs MD [address] [place] [address] PCP - General Family Medicine 02/25/24 Cristina Calero NP [facility] [address] [place] [address] Nurse Practitioner Gastroenterology 02/25/24 Epifanio Oleary MD [address] [facility] [address] [place] [address] Consulting Physician Cardiology 02/25/24 Edyta Linton MD [address] [place] [address] Consulting Physician Sleep Medicine 02/25/24 Christiano Bentley MD [address] [facility] [address] [address] Referring Physician Orthopedic Surgery 02/25/24 Mary Anaya MD [address] [facility] [id number] [place] [address] Consulting Physician General Surgery 10/24/24
--- OUTSIDE RECORDS SUMMARY | 2024-12-01 00:07 | XMS_ITS | Encounter Summary ---
Author Organization [facility] Healthcare Address [address] [place] [address] Care Team Providers Care Skate Shop Attendant Name Role Phone Conrad Das MD Primary Care Provider Cristina Calero NP Unavailable [phone] Epifanio Oleary MD Unavailable Edyta Linton MD Unavailable Christiano Bentley MD Unavailable [phone] Mary Anaya MD Unavailable [phone] Encounter Details Date Type Department Care Team (Late st Contact Info) Description 11/10/2024 Results Follow-Up [facility] Primary Care at [address] [address] Rehana Gaines SALES ORDER CLERK [address] [place] [address] Social History Tobacco Use Types Packs/Day Years Used Date Smoking Tobacco: Former Cigarettes 0.5 20 0 08/31/1988 - 2008 Passive Smoke Exposure: Past Smokeless Tobacco: Never AUDIT-C Answer Date Recorded Q1: How often [...] on file Legal Sex Female 7:16 AM TRAINING DEVELOPMENT MANAGER Gender Identity Not on file Sexual Orientation Not on file documented as of this encounter Plan of Treatment Not on file documented as of this encounter Visit Diagnoses Not on filedocumented in this encounter Care Teams Skate Shop Attendant Relationship Specialty Start Date End Date Conrad Das MD [address] [place] [address] PCP - General Family Medicine 02/25/24 Cristina Calero NP [address] [place] [address] Nurse Practitioner Gastroenterology 02/25/24 Epifanio Oleary MD [address] [address] Consulting Physician Cardiology 02/25/24 Edyta Linton MD [address] [place] [address] Consulting Physician Sleep Medicine 02/25/24 Christiano Bentley MD [address] [address] Referring Physician Orthopedic Surgery 02/25/24 Mary Anaya MD [address] [facility] [id number] [place] [address] Consulting Physician General Surgery 10/24/24 documented as of this encounter
--- OUTSIDE RECORDS SUMMARY | 2024-12-01 00:07 | XMS_ITS | Clinical Summary ---
Author Organization [facility] Address [address] [place] [address] Care Team Providers Care Chemist Instrumentation Name Role Phone Conrad Das MD Primary Care Provider Cristina Calero NP Unavailable Epifanio Oleary MD Unavailable Edyta Linton MD Unavailable Christiano Bentley MD Unavailable [phone] Mary Anaya MD Unavailable [phone] Allergies Active Allergy Reactions Criticality Noted Date Comments [place]-3 Fatty Acids Palpitations Low 09/28/2024 Medications diclofenac [...] 10/2023 Assessment & Plan (08/02/2024 1:45 PM REGULATORY LEADER): A(n) yearly Medicare Annual Wellness Visit has [...] Department Care Team Description 11/10/2024 Results Follow-Up [facility] Primary Care at [address] [phone] Rehana Gaines NP 11/08/2024 1:30 PM CDT Office Visit [facility] Sleep Medicine at [address] [place] [address] Edyta Linton MD Obstructive sleep apnea (Primary Dx); Hypersomnia; Overweight; Insomnia, unspecified type 11/04/2024 5:34 PM REGULATORY LEADER - 11/04/2024 11:59 PM REGULATORY LEADER Hospital Encounter [facility] [address] [place] [address] Epigastric abdominal tenderness without rebound tenderness Discharge Disposition: Discharge to home or self care 10/24/2024 1:00 PM REGULATORY LEADER Office Visit [facility] Primary Care at [address] [phone] Conrad Das MD Epigastric abdominal tenderness without rebound tenderness (Primary Dx) 10/19/2024 Nurse Triage [facility] Primary Care at [address] [phone] Conrad Das MD 09/28/2024 10:45 AM REGULATORY LEADER Office Visit [facility] Cardiology [address] [facility] [address] [place] [phone] Epifanio Oleary MD Essential hypertension (Primary Dx); Palpitations; ART on CPAP 09/13/2024 2:05 PM REGULATORY LEADER - 09/13/2024 11:59 PM REGULATORY LEADER Hospital Encounter [facility] Office [facility] [address] [place] [address] Abnormality of left breast on screening mammogram Discharge Disposition: Discharge to home or self care 09/13/2024 2:05 PM REGULATORY LEADER - 09/13/2024 11:59 PM REGULATORY LEADER Hospital Encounter [address] [place] [address] Abnormality of left breast on screening mammogram Discharge Disposition: Discharge to home or self care 09/07/2024 Orders Only [facility] Primary Care at [address] [phone] Conrad Das MD Abnormality of left breast on screening mammogram (Primary Dx) from Last 3 Months Immunizations Immunization Administration [...] Site/Laterality Comments HYSTERECTOMY CATARACT EXTRACTION 2020 SECTION 1977 LASIK 1999 RETINAL DETACHMENT SURGERY Right COLONOSCOPY 08/31/2023 - 08/30/2024 Medical History Medical History Date Comments Hypertension Anxiety 2003 Osteoporosis 2013 Cataract 2019 Sleep apnea 2000 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 Family History Medical History Relation Name Comments Cancer Father Jose Martin Waller Lung cancer Father Jose Martin Waller Arthritis Mother Marie Black Cathy Hypertension Mother Marie Black Cathy Osteoporosis Mother Marie Black Cathy flu Mother Marie Black Cathy Arrhythmia Sister 1 Mary [place] Cardiomyopathy Sister 1 Mary [place] Clotting disorder Sister 1 Mary [place] Peripheral vascular disease Sister 1 Mary [place] glioblastoma Sister 2 Mary Waller Anesthesia problems Neg Hx Relation Name Status Comments Father Jose Martin Waller Mother Marie Black Cathy Sister 1 Mary [place] Alive Sister 2 Mary [place]thorne Sridhar Social History Tobacco Use Types Packs/Day Years [...] on file Legal Sex Female 7:16 AM REGULATORY LEADER Gender Identity Not on file Sexual Orientation Not on file Obstetrics History Para Term AB IAB SAB Ectopic Multiple Livin g Live Births 1 1 1 Date Outcome GA Total Labor Labor/2nd/3rd Weight Sex Type Anes PTL Nuvia A1 A5 Name Clin Term Last Filed Vital Signs Vital Sign Reading Time Taken Comments Blood Pressure 109/70 11/08/2024 1:19 PM CDT Pulse 61 11/08/2024 1:19 PM CDT Temperature 36.7 C (98 F) 10/24/2024 12:56 PM REGULATORY LEADER Respiratory Rate 16 08/02/2024 1:37 PM REGULATORY LEADER Oxygen Saturation 98% 11/08/2024 1:19 PM CDT Inhaled Oxygen Concentration - - Weight 75.9 kg (167 lb 6.4 oz) 11/08/2024 1:19 P M CDT Height 167.6 cm (5' 5.98 ) 11/08/2024 1:19 PM CD T Body Mass Index 27.03 11/08/2024 1:19 PM CDT Plan of Treatment Health Maintenance Due Date Last Done Comments Hepatitis B Screening 1973 Covid-19 Vaccine (2023- 5 season) 2024 05/18/2023, 05/09/2022, 06/29/2021, Additional [...] PELVIS W CONTRAST Routine 11/04/2024 5:54 PM REGULATORY LEADER Epigastric abdominal tenderness without rebound tenderness POCT CREATININE FOR CONTRAST EVALUATION Routine 11/04/2024 5:49 PM REGULATORY LEADER US BREAST LEFT LIMITED Schedule Routine, Read Routine (OP Routine) 09/13/2024 3:34 PM REGULATORY LEADER Abnormality of left breast on screening mammogram DIAGNOSTIC MAMMOGRAM LEFT W BIENVENIDO Schedule Routine, Read Routine (OP Routine) 09/13/2024 2:20 PM REGULATORY LEADER Abnormality of left breast on screening mammogram SCREENING MAMMOGRAM BILATERAL W BIENVENIDO Schedule Routine, Read Routine (OP Routine) 08/30/2024 11:28 AM REGULATORY LEADER Screening mammogram, encounter for HEPATITIS C RNA, QUANTITATIVE, PCR Routine 02/26/2024 8:52 AM CDT Liver cyst HM DEXA SCAN Routine 10/19/2023 10:08 AM REGULATORY LEADER HM COLONOSCOPY Routine 05/27/2022 10:11 AM CDT from Last 3 Months or Most Recently Relevant to Health Maintenance Results * CT Abdomen Pelvis W Contrast (11/04/2024 5:54 PM REGULATORY LEADER) Anatomical Region Laterality Modality Body N/A Computed [...] Kartik Montes M.D. RB: JOHN Report ID: [id number] Reading Location: [place] [address] Procedure Note Kartik Montes MD - 11/10/2024 [...] Kartik Montes M.D. RB: JOHN Report ID: [id number] Reading Location: [id number] us Conrad Das MD IM CT PROCEDURES Final Res ult * POCT creatinine for contrast evaluation (11/04/2024 5:49 PM REGULATORY LEADER) Creatinine POC 0.80 0.60 - 1.10 mg/dL Comment:Testing performed by : [facility], [address] [place] [address], [place]., [address] Blood 11/04/2024 5:49 PM REGULATORY LEADER 11/04/2024 5:49 PM REGULATORY LEADER us Conrad Das MD POINT OF CARE TEST ORDERABL ES Final Result [facility] [address] [facility] Department [place] [address] * US Breast Left Limited (09/13/2024 3:34 PM REGULATORY LEADER) Anatomical Region Laterality Modality Breast Left Ultrasound 09/13/2024 5:26 PM REGULATORY LEADER Addenda Addendum by Ashley Amador MD on 09/15/2024 6:31 PM REGULATORY LEADER The report below was erroneously labeled as a BI-RADS 2. Because the structure is round with some degree of low level internal echoes, six-month follow-up ultrasound is recommended. BI-RADS 3-probably benign findings. Short-term follow-up is recommended. Electronically signed by: Ashley Amador M.D. Impressions 09/13/2024 5:26 PM REGULATORY LEADER No imaging findings to suggest malignancy are seen. The patient may return to screening mammography as per ACR guidelines. OVERALL FINAL ASSESSMENT: [id number] Electronically signed by: Ashley Amador M.D. Narrative 09/13/2024 5:26 PM REGULATORY LEADER EXAMINATION: LEFT DIGITAL DIAGNOSTIC MAMMOGRAM AND DIGITAL [...] as per ACR guidelines. OVERALL FINAL ASSESSMENT: [id number] Electronically signed by: Ashley Amador M.D. Conrad Das MD IMG MAMMO PROCEDURES Edited Result - Final * Diagnostic Mammogram Left W Bienvenido (09/13/2024 2:20 PM REGULATORY LEADER) Anatomical Region Laterality Modality Breast Left Mammography 09/13/2024 5:26 PM REGULATORY LEADER Addenda Addendum by Ashley Amador MD on 09/15/2024 6:31 PM REGULATORY LEADER The report below was erroneously labeled as a BI-RADS 2. Because the structure is round with some degree of low level internal echoes, six-month follow-up ultrasound is recommended. BI-RADS 3-probably benign findings. Short-term follow-up is recommended. Electronically signed by: Ashley Amador M.D. Impressions 09/13/2024 5:26 PM REGULATORY LEADER No imaging findings to suggest malignancy are seen. The patient may return to screening mammography as per ACR guidelines. OVERALL FINAL ASSESSMENT: [id number]-Benign Electronically signed by: Ashley Amador M.D. Narrative 09/13/2024 5:26 PM REGULATORY LEADER EXAMINATION: LEFT DIGITAL DIAGNOSTIC MAMMOGRAM AND DIGITAL [...] Mammogram Bilateral W Bienvenido (08/30/2024 11:28 AM REGULATORY LEADER) Anatomical Region Laterality Modality Breast Bilateral Mammography Impressions 09/06/2024 2:34 PM REGULATORY LEADER Asymmetries on the left, for which additional [...] age 40, based on guidelines of the [place] [employer] (ACR Practice Parameter for the Performance of Screening and Diagnostic Mammography) and [place] [employer]. For women with and elevated risk of breast cancer, please refer to the ACR Practice Parameter for specific screening recommendations. The patient will be entered into a reminder system with a target due date of 1 year for her next screening exam. Narrative 09/06/2024 2:34 PM REGULATORY LEADER Screening Mammogram Bilateral W Bienvenido: 08/30/24 The [...] IU/mL <15 NOT DETECTED NOT DETECTED IU/mL [facility] HCV RNA log IU/mL <1.18 NOT DETECTED NOT DETECTED Log IU/mL [facility] Comment: For additional information, please refer to http://education.[employer].Critical Links/faq/OCX60e1 (This link is being provided for informational/ educational purposes only.) Blood 02/26/2024 8:52 AM CDT 02/26/2024 8:53 AM CDT Narrative [facility] - 02/27/2024 2:28 PM CDT FASTING:YES FASTING: YES Cristina Calero NP LAB MICROBIOLOGY - LAURENCE MELENDEZ ORDERABLES Final Result [facility] [address] [address] * DEXA SCAN (10/19/2023 10:08 AM REGULATORY LEADER) us Historical Provider HEALTH MAINTENANCE Final Result * HM COLONOSCOPY (05/27/2022 10:11 AM CDT) us Historical Provider HEALTH MAINTENANCE Final Result from Last 3 Months or Most Recently Relevant to Health Maintenance Insurance [id number] Advance Directives For more information, please contact: [phone] * Full Code (Latest Code Status on File) Date Activated Date Inactivated Comments 04/22/2024 3:29 PM 04/24/2024 7:06 PM Care Teams Chemist Instrumentation Relationship Specialty Start Date End Date Conrad Das MD [address] [place] [address] PCP - General Family Medicine 02/25/24 Cristina Calero, AMY [address] [place] [address] Nurse Practitioner Gastroenterology 02/25/24 Epifanio Oleary MD [address] [address] Consulting Physician Cardiology 02/25/24 Edyta Linton MD [address] [place] [address] [address] Consulting Physician Sleep Medicine 02/25/24 Christiano Bentley MD [address] [facility] [address] [place] [address] Referring Physician Orthopedic Surgery 02/25/24 Mary Anaya MD [address] [facility] [id number] [place] [address] Consulting Physician General Surgery 10/24/24
--- NOTE | 2024-12-01 06:22 | SUR.PREOP ---
0620 Pt called, pt states she thought she had to be here at 0630, states she is on her way.
[2024-12-01] MEDS: ACETAMINOPHEN 500 MG TABLET 1000 MG PO (06:48)
[2024-12-01] MEDS: LACTATED RINGERS 1,000 ML 30 ML IV CONT ×2 (06:50→09:45)
[2024-12-01] MEDS: TRANEXAMIC ACID 1,000MG/ISO100 1,000 MG/100 ML BAG 200 MG IVPB (06:52)
--- NOTE | 2024-12-01 06:56 | WPDANESEPPF ---
Anes - Initial Pre Proc Eval Procedure: Operation Date: 12/01/24 07:30 Proposed Procedures p Left Custom Total Knee Arthroplasty - Christiano Bentley MD Date/Time: 12/01/24 06:56 Surgeon: Christiano Bentley MD Pre Op Diagnosis: Prim O.A. Left Knee Patient Data Age: 69 Gender: F Height: 1.64 m Weight: 76 kg Last Vital Signs Temp 97.8 F 11/09/24 12:07 Pulse 57 L 11/09/24 12:07 Resp 16 11/09/24 12:07 BP 108/73 11/09/24 12:07 Pulse Ox 100 11/09/24 12:07 Allergies Allergy/AdvReac Type Severity Reaction Status Date / Time No Known Allergies Allergy Verified 11/09/24 12:01 Home Medications ?Medication ?Instructions ?Recorded ?Confirmed ?Type diclofenac sodium 1 % topical gel 4 gm topical QID #100 grams 07/29/19 11/09/24 Rx miscellaneous medical supply 1 ea miscellaneous QHS #1 ea 11/27/22 11/09/24 Rx aspirin 81 mg tablet,delayed 81 mg PO DAILY 02/19/23 11/09/24 History release (Adult Low Dose Aspirin) lisinopril 10 mg tablet 10 mg PO DAILY #90 tabs 09/28/23 11/09/24 Rx venlafaxine 37.5 mg See Rx Instructions .Route 09/28/23 11/09/24 Rx capsule,extended release 24 hr .COMPLEX #90 caps eszopiclone 3 mg tablet 3 mg PO QHS #90 tabs 03/11/24 11/09/24 Rx ibuprofen 200 mg tablet (Advil) 200 mg PO Q6H PRN pain 11/09/24 11/09/24 History metoprolol succinate 25 mg 25 mg PO QAM 11/09/24 11/09/24 History tablet,extended release 24 hr multivitamin (Daily Multi-Vitamin 1 tablet PO DAILY 11/09/24 11/09/24 History tablet) Patient hx anesthesia problems: none Family hx anesthesia problems: none Results Review: All pre-operative results and documents have been reviewed as part of the pre-operative evaluation. [facility] Past Medical History Medical History Arthritis Heart palpitations Benign essential hypertension Obstructive sleep apnea Bradycardia Anxiety Depression Obstructive sleep apnea (adult) (pediatric) Surgical History Surgical History H/O colonoscopy History of hysterectomy History of cataract surgery Family History Family History Mother Hypertension Osteoporosis Father Family history of lung cancer, Onset Age: 59 Social History Social History Smoking packs per day: 0.5 Smoking cigarettes per day: 10.0 Years smoked: 15 Smoking pack-years: 7.50 Smoking status: Former smoker Tobacco type: cigarettes Smoking end date: 08/31/06 Alcohol intake: current Substance use: never Substance use type: does not use Do You Feel Safe in your Home?: Yes Lack of Transportation: No Lack of Food: Never True Current Housing: I Have Housing Concerned About Future Housing: No Difficulty Paying Gas/Electric Bills: No Difficulty Paying for Meds: No Currently Unemployed: No Education: High School Diploma/GED Difficulty w/ Childcare or Family Care: No Living arrangements: with family Additional living arrangements comments: HUSB Spiritual care concerns: No Anes - Eval Final PreProcedure Day of Procedure 12/01/24 06:56 Patient weight: overweight Lungs: normal air movement Airway: Mallampati scale class II and special considerations (Implants, none loose. ) Neurological: alert and oriented Last oral intake: >/= 8 hours ASA classification: III Emergent: no Anesthetic plan: proceed Anesthesia type and monitoring: general LMA and standard monitoring Results Review: All pre-operative results and documents have been reviewed as part of the pre-operative evaluation. HTN, ART on CPAP, hx of palpitations on b bashir (not taken this am), EKG w NSR. Informed Consent: The patient's anesthetic plan and its attendant risks and benefits were discussed with the patient/family/POA. Questions were solicited and answers provided to the satisfaction of the patient/family/POA.
--- NOTE | 2024-12-01 07:24 | WPDHPUPDATE1 ---
History and Physical Update Update Date/Time: 12/01/24 07:24 History and Physical has been reviewed, including an updated exam of the patient. There are NO changes in the patient's condition. Risks, benefits, and alternatives have been discussed and questions answered. Patient agrees to proceed with procedure.
[2024-12-01] MEDS: ceFAZolin 2 GM/D5W 50 ML 2 GM/50 ML BAG IVPB (07:34)
[2024-12-01] MEDS: SODIUM CHLORIDE 0.9% IV 37.7 ML, MORPHINE SULFATE INJ (*CRX) 2 MG, ROPivacaine HCL 1% 2... INFILTRATE (08:00)
[2024-12-01] MEDS: TRANEXAMIC ACID 1,000 MG/10 ML AMPUL 1000 MG IV PUSH (09:11)
--- NOTE | 2024-12-01 09:26 | W.PM.PROC2 ---
Procedure Note - Detailed Date of Procedure 12/01/24 Pre-op Diagnosis Left knee degenerative arthritis. Post-op Diagnosis Same Procedure Performed Custom total knee arthroplasty, left. Surgeon Christiano Bentley MD Merchandise Complaint Adjuster Cristina Menendez PA-C Anesthesia General Findings Severe valgus arthritis. Good bone quality. Lateral capsule release. Custom implants with optimal fit. Minimally invasive subvastus approach. Description of Procedure Preoperative antibiotics were given. The limb was prepped and draped in the usual sterile fashion with a well-padded tourniquet high on the thigh. The limb was exsanguinated and the tourniquet inflated to 300 mmHg. A longitudinal incision was created just medial to the patella. A subvastus approach to the knee was performed. Arthrotomy was taken down through the joint capsule. No significant releases were initially taken. The femur was exposed and the F1 jig was applied. The coring tool was used to remove the cartilage for the F2 jig to sit flush with the bone. The jig was pinned and the distal cut carefully taken. Caliper measurements confirmed appropriate bony resections according to the preoperative templated plan. The F4 cutting jig for the femur was applied, at the standard rotation. The AP and anterior chamfer cuts were taken. The F5 jig was applied and the posterior chamfer cuts were taken. The tibia was prepared using the T1 jig, after removing cartilage for the jig contact points. Proper alignment was checked with the alignment kin. The tibia was cut using the T1u guide. Gap balancing was performed. Gap measurements were taken and the knee was trialed. Excellent alignment and soft tissue balancing was confirmed. The posterior cruciate ligament was recessed along the proximal tibia. The patella was cut for resurfacing. Three lug holes were drilled. Meniscal remnants were removed. The trial components were assembled. Excellent range of motion and proper soft tissue balancing were confirmed throughout the full range of motion. Additional posterior capsule release from the posterior lateral capsule. Patellar tracking was excellent. The knee was copiously irrigated periodically throughout the procedure. The real implants were cemented into position. Excess cement was carefully removed. The wound was closed in layers with interrupted #1 Vicryl suture, 2-0 strata fix suture, 0 strata fix suture, 2-0 strata fix suture. Steri-Strips placed on the skin with the knee flexed. Sterile bulky dressing applied. The patient was brought to the recovery room in stable condition. There were no complications. Physician assistant banquet manager, Cristina Menendez PA-C, required for surgery; including patient positioning, draping, tissue retraction, maintaining instrument position, wound closure, and dressing placement. Implants Conformis Custom total knee arthroplasty. Cemented. Cruciate retaining. 7A insert. 32 mm oval patella. Estimated Blood Loss 20 Tourniquet Time Total Tourniquet Time: 65 Drains No Complications No immediate complications Condition Stable Disposition PACU [facility] Billing Surgery - Charge Forward: Surgery Billing
[2024-12-01] MEDS: fentaNYL CITRATE INJ (*CRX) 100 MCG/2 ML VIAL 25 MCG IV PUSH ×6 (10:03→10:45)
[2024-12-01] MEDS: oxyCODONE HCL (*CRX) 5 MG TAB IR PO (11:18)
--- NOTE | 2024-12-01 12:39 | SUR.PHASEII ---
Patient seen by PT, OT, and Dr Bentley in OP recovery and meets d/c criteria.
== END 2024-12-01 13:05 | disposition home or self-care (01) ==
PROVIDERS: PCP Family Medicine; Visit Provider Orthopaedic Surgery
PROC: (CPT 27447; principal; 2024-12-01 07:30)
DX: M17.12 Unilateral primary osteoarthritis, left knee (principal); I10 Essential (primary) hypertension; G47.33 Obstructive sleep apnea (adult) (pediatric); F32.A Depression, unspecified
CPT/HCPCS: 27447; 36415; 73560; 86850; 86900; 86901; 97110; 97161; 97165; A9270; C1713; C1776; J0171; J0690; J1100; J1171; J1885; J2003; J2250; J2270; J2405; J2704; J2795; J3010; J7120